=== PATIENT | male | born 1955 | race Caucasian/White ===

== ENCOUNTER 2020-04-23 01:11 | Outpatient (CLI) | payer MEDICARE, SELFPAY ==
[2020-04-23 18:41] LABS: SARS-CoV-2 RNA PCR Negative
== END 2020-04-23 01:12 | disposition home or self-care (01) ==
LOC: ANHCOVIDDT 01:11
PROVIDERS: PCP Family Medicine Adolescent Medicine; Visit Provider Internal Medicine Gastroenterology
DX: Z01.812 Encounter for preprocedural laboratory examination (principal); Z11.59 Encounter for screening for other viral diseases
CPT/HCPCS: 87635; C9803; U0003

== ENCOUNTER 2020-04-25 01:36 | Day surgery (SDC) | payer MEDICARE, SELFPAY ==
[2020-04-18 13:55] VITALS: BMI 25.1
[2020-04-25 10:43] VITALS: BP 104/68; PULSE 76; RESP 16; TEMP 36.2; O2SAT 99; BMI 24.8
[2020-04-25] MEDS: LACTATED RINGERS 1,000 ML 150 ML IV CONT (10:46)
--- NOTE | 2020-04-25 11:00 | WPDANESEPPF ---
Anes - Initial Pre Proc Eval Procedure: Operation Date: 04/25/20 12:00 Proposed Procedures p Screening Colonoscopy - Abraham Cabrera DO Date/Time: 04/25/20 11:00 Surgeon: Abraham Cabrera DO Pre Op Diagnosis: neoplasm screening Patient Data Age: 64 Gender: M Height: 5 ft 8 in Weight: 74.2 kg Last Vital Signs Temp 97.1 F L 04/25/20 10:43 Pulse 76 04/25/20 10:43 Resp 16 04/25/20 10:43 BP 104/68 04/25/20 10:43 Pulse Ox 99 04/25/20 10:43 Allergies Allergy/AdvReac Type Severity Reaction Status Date / Time No Known Allergies Allergy Verified 04/25/20 10:40 Home Medications Medication Instructions Recorded Confirmed Type aspirin 81 mg PO DAILY 04/18/20 04/18/20 History clopidogrel [Plavix] 75 mg PO DAILY 04/18/20 04/18/20 History fluticasone furoate-vilanterol 1 inh INHALATION DAILY 04/18/20 04/18/20 History [Breo Ellipta] icosapent ethyl [Vascepa] 2 g PO BID 04/18/20 04/18/20 History olmesartan [Benicar] 40 mg PO DAILY 04/18/20 04/18/20 History pantoprazole 20 mg PO QAM 04/18/20 04/18/20 History propranolol 80 mg PO DAILY 04/18/20 04/18/20 History rosuvastatin [Crestor] 20 mg PO DAILY 04/18/20 04/18/20 History Patient hx anesthesia problems: none Family hx anesthesia problems: none [facility] Past Medical History Medical History (Updated 04/25/20 @ 10:55 by Luis Montoya MD) Asthma CVA (cerebral vascular accident) GERD (gastroesophageal reflux disease) Hypertension Family History Family History (Updated 05/21/18 @ 09:35 by DOCTOR UNKNOWN) Father Diabetes mellitus Hypertension Asthma Family history of Alzheimer's disease Sibling Patient's sister is in good health Patient's brother is in good health Mother Family history of elevated blood lipids Social History Social History Smoking status: Former smoker Smoking end date: 10/12/80 Anes - Eval Final PreProcedure Day of Procedure 04/25/20 11:00 Patient weight: normal Heart: regular rate and rhythm Lungs: clear to auscultation Airway: Mallampati scale class II Neurological: alert and oriented Last oral intake: >/= 8 hours ASA classification: III Emergent: no Anesthetic plan: proceed Anesthesia type and monitoring: general GIVS and standard monitoring Informed Consent: The patient's anesthetic plan and its attendant risks and benefits were discussed with the patient/family/POA. Questions were solicited and answers provided to the satisfaction of the patient/family/POA.
--- NOTE | 2020-04-25 11:25 | PM.IMHP ---
H&P: HPI History of Present Illness Chief complaint: neoplasm screening Narrative: Reason for visit colonoscopy. This very pleasant gentleman's here at the request of the primary physician. The patient was examined. Impression: Colon cancer polyp screening. Recommendation: Colonoscopy. History: This very pleasant gentleman is here for screening colonoscopy. GI review systems negative. He has remote history of colon polyps? . Physical examination: General: very pleasant patient in no acute distress. HEENT: Head was normocephalic sclerae is clear mouth without masses neck was supple. Heart: Rate rhythm regular without S3 or S4. Lungs: CTA. Abdomen: Soft with no guarding or rigidity. Bowel sounds were active. Neurologic: Cranial nerves 2 through 12 intact. No focal defects. No clonus. Musculoskeletal system: Revealed no joint tenderness or swelling no muscle atrophy. Extremities: Reveal no significant edema. Skin: Warm and dry with normal turgor. Mental status: intact. Patient is alert and oriented. Review of Systems Review of Systems: All systems reviewed & are unremarkable except as noted in HPI and below PMFSH Past Medical History Medical History (Updated 04/25/20 @ 11:26 by Abraham Cabrera DO) Asthma CVA (cerebral vascular accident) GERD (gastroesophageal reflux disease) HLD (hyperlipidemia) HTN (hypertension) Surgical History Surgical History (Updated 04/25/20 @ 11:27 by Abraham Cabrera DO) H/O colonoscopy History of nasal surgery Family History Family History Father Diabetes mellitus Hypertension Asthma Family history of Alzheimer's disease Sibling Patient's sister is in good health Patient's brother is in good health Mother Family history of elevated blood lipids Social History Social History Smoking status: Former smoker Smoking end date: 10/12/80 Meds Home Medications and Allergies Home Medications Medication Instructions Recorded Confirmed Type aspirin 81 mg PO DAILY 04/18/20 04/18/20 History clopidogrel [Plavix] 75 mg PO DAILY 04/18/20 04/18/20 History fluticasone furoate-vilanterol 1 inh INHALATION DAILY 04/18/20 04/18/20 History [Breo Ellipta] icosapent ethyl [Vascepa] 2 g PO BID 04/18/20 04/18/20 History olmesartan [Benicar] 40 mg PO DAILY 04/18/20 04/18/20 History pantoprazole 20 mg PO QAM 04/18/20 04/18/20 History propranolol 80 mg PO DAILY 04/18/20 04/18/20 History rosuvastatin [Crestor] 20 mg PO DAILY 04/18/20 04/18/20 History Allergies Allergy/AdvReac Type Severity Reaction Status Date / Time No Known Allergies Allergy Verified 04/25/20 10:40 Vital Signs Vital Signs - 24 hr 04/25/20 10:43 Temperature 36.2 C L Pulse Rate 76 Respiratory Rate 16 Blood Pressure 104/68 Pulse Oximetry 99
[2020-04-25 12:04] VITALS: BP 77/45; PULSE 73; RESP 25; O2SAT 97
[2020-04-25 12:14] VITALS: BP 95/56; PULSE 75; RESP 23; O2SAT 95
[2020-04-25 12:24] VITALS: BP 101/64; PULSE 71; RESP 20; O2SAT 98
== END 2020-04-25 12:35 | disposition home or self-care (01) ==
PROVIDERS: PCP Family Medicine Adolescent Medicine; Visit Provider Internal Medicine Gastroenterology
PROC: 0DJD8ZZ Inspection of Lower Intestinal Tract, Via Natural or Artificial Opening Endoscopic (ICD-10-PCS; CPT 45378; principal; 2020-04-25 12:00)
DX: Z12.11 Encounter for screening for malignant neoplasm of colon (principal); D12.2 Benign neoplasm of ascending colon; D12.8 Benign neoplasm of rectum; K63.5 Polyp of colon; K57.30 Diverticulosis of large intestine without perforation or abscess without bleeding; K64.8 Other hemorrhoids; I10 Essential (primary) hypertension; J45.909 Unspecified asthma, uncomplicated; K21.9 Gastro-esophageal reflux disease without esophagitis; Z86.73 Personal history of transient ischemic attack (TIA), and cerebral infarction without residual deficits; Z79.82 Long term (current) use of aspirin; Z79.02 Long term (current) use of antithrombotics/antiplatelets; Z87.891 Personal history of nicotine dependence
CPT/HCPCS: 45385; 88305; J2370; J2704; J7120

== ENCOUNTER 2020-08-10 19:29 | Inpatient (IN) | payer MEDICARE, SELFPAY ==
[2020-08-10] VITALS (24 sets, daily range): BP systolic 108–133; BP diastolic 63–78; PULSE 75–87; RESP 16–18; TEMP 36.3; O2SAT 90–100
--- NOTE | ~2020-08-10 | CT_ITS ---
EXAMINATION: CTA abdomen pelvis DATE: 08/10/2020 23:21 INDICATION: Blood in the stool TECHNIQUE: Computed tomographic angiography (CTA) of the abdomen and pelvis was performed with 100 mL Omnipaque-350 intravenous contrast. Maximum intensity projection 3D-reconstructions of the aorta and other arteries were constructed by the technologist on a separate workstation. The dose-length produ ct (DLP) was 729.69 mGy-cm. Automated exposure control and iterative reconstruction technique were em ployed. COMPARISON: None. FINDINGS: The lung bases are clear. The heart size is normal. There is minimal atherosclerosis of the abdominal aorta. No aortic dissection or aneurysm is identified. The celiac axis, superior mesenteri c artery, and inferior mesenteric artery are unremarkable. The iliac vessels are normal in appearance . Single renal arteries are present bilaterally. The liver, spleen, pancreas, gallbladder, and adrena l glands are normal. Colonic diverticulosis is noted. Subtle fat stranding is seen adjacent to the si gmoid colon. The appendix is normal. No pathologically enlarged abdominal or pelvic lymph nodes are i dentified. There is no free intraperitoneal gas or evidence of bowel obstruction. There is a left ing uinal hernia containing fat. There is mild lumbar spondylosis. IMPRESSION: 1. Diverticulosis with possible mild sigmoid diverticulitis. 2. Unremarkable abdominal and pelvic CTA. Reviewed, dictated and finalized at location A.
[2020-08-10 22:21] LABS: Basophils Absolute Auto 0.1 K/mm3 (0.0-0.1); Basophils Percent Auto 0.5 % (0.2-1.2); Eosinophils Absolute Auto 0.2 K/mm3 (0-0.3); Eosinophils Percent Auto 1.7 % (0-4.4); Hematocrit 37.9 % (42.0-52.0); Hemoglobin 13.1 g/dL (14.0-18.0); Immature Granulocyte Absolute 0.07 K/mm3 (0.00-0.031); Immature Granulocyte Percent A 0.6 % (0-0.5); Lymphocytes Absolute Auto 2.35 K/mm3 (0.9-3.2); Lymphocytes Percent Auto 19.6 % (18.3-44.2); Mean Corpuscular HGB Conc 34.6 g/dl (32-36); Mean Corpuscular Hemoglobin 32.2 pg (26-34); Mean Corpuscular Volume 93.1 fl (80-100); Mean Platelet Volume 8.6 fl (7.4-10.4); Monocytes Absolute Auto 0.7 K/mm3 (0.1-0.6); Monocytes Percent Auto 6.1 % (2.6-8.5); Neutrophils Absolute Auto 8.6 K/mm3 (1.3-6.7); Neutrophils Percent Auto 71.5 % (45.5-73.1); Platelet Count Result 289 k/mm3 (150-375); Red Blood Count 4.07 M/mm3 (4.6-6.20); Red Cell Distribution Width 11.6 % (11.5-14.5)
[2020-08-10 22:34] LABS: Alanine Aminotransferase 41 U/L (4-50); Albumin Level 4.3 g/dL (3.5-5.1); Alkaline Phosphatase 76 U/L (38-126); Anion Gap 9 mmol/L (8-16); Aspartate Amino Transferase 34 U/L (17-59); Bilirubin,Total 0.7 mg/dL (0.2-1.3); Blood Urea Nitrogen 26 mg/dL (9-20); Calcium 9.2 mg/dL (8.4-10.2); Carbon Dioxide 26 mmol/L (22-30); Chloride 102 mmol/L (98-107); Estimated CRCL calculation 57 ml/min; Estimated Glomerular Filt Rate > 60; Glucose 98 mg/dL (75-110); Potassium 4.3 mmol/L (3.4-5.0); Sodium 137 mmol/L (137-145)
--- NOTE | 2020-08-10 22:37 | ED.GIBLEED ---
HPI - GI Bleed General Chief complaint: GI Bleed Stated complaint: UPSET STOMACH, BLOOD IN STOOL Time Seen by Provider: 08/10/20 20:23 Source: patient and family Mode of arrival: ambulatory Limitations: no limitations History of Present Illness HPI Narrative: 65-year-old male History of hypertension and CVA and is on Plavix Had a diarrheal illness earlier this month which he took Lomotil for Presents now with several loose bloody stools today which seem to be getting somewhat worse He has no abdominal pain His most recent episode here in the ED he described as just a big blood clot No dizziness or lightheadedness complaint: gross hematochezia Onset (ago): hour(s) Pain Consistency: other (None) Related Data Home Medications Medication Instructions Recorded Confirmed aspirin 81 mg PO DAILY 04/18/20 04/18/20 clopidogrel [Plavix] 75 mg PO DAILY 04/18/20 04/18/20 fluticasone furoate-vilanterol 1 inh INHALATION DAILY 04/18/20 04/18/20 [Breo Ellipta] icosapent ethyl [Vascepa] 2 g PO BID 04/18/20 04/18/20 olmesartan [Benicar] 40 mg PO DAILY 04/18/20 04/18/20 pantoprazole 20 mg PO QAM 04/18/20 04/18/20 propranolol 80 mg PO DAILY 04/18/20 04/18/20 rosuvastatin [Crestor] 20 mg PO DAILY 04/18/20 04/18/20 Allergies Allergy/AdvReac Type Severity Reaction Status Date / Time No Known Allergies Allergy Verified 08/10/20 22:24 Review of Systems Review of Systems: All systems reviewed & are unremarkable except as noted in HPI and below Constitutional: Constitutional: Denies chills, Denies fatigue, Denies fever(s), Denies headache(s) and Denies weakness Eyes: Eyes: Reports no additional eye complaints and Denies change in vision ENT: Denies headache(s), Denies epistaxis, Denies nasal congestion and Denies sore throat Cardiovascular: Cardiovascular: Denies chest pain, Denies leg edema, Denies palpitations and Denies dyspnea Respiratory: Respiratory: Denies cough, Denies dyspnea and Denies wheezing Gastrointestinal: Gastrointestinal: Denies abdominal pain, Reports diarrhea, Denies nausea and Denies vomiting Comments: Lower GI bleed Genitourinary: Genitourinary: Denies hematuria, Denies dysuria and Denies urinary frequency Musculoskeletal: Musculoskeletal: Denies deformity, Denies arthralgias, Denies joint swelling, Denies muscle weakness and Denies numbness Integumentary/Breasts: Skin/Breast: Denies rash and Denies wounds Neurologic: Denies headache(s), Denies focal weakness, Denies numbness and Denies weakness Psychiatric: Psychiatric: Reports no additional psychiatric complaints Endocrine: Endocrine: Denies fatigue and Denies palpitations Hematologic/Lymphatic: Hematologic/Lymphatic: Denies easy bleeding and Denies easy bruising Allergic/Immunologic: Allergic/Immunologic: Denies wheezing PMFSH Past Medical History Medical History (Updated 08/11/20 @ 00:21 by Abraham Gilmore MD) Asthma CVA (cerebral vascular accident) GERD (gastroesophageal reflux disease) HLD (hyperlipidemia) HTN (hypertension) Surgical History Surgical History (Updated 04/25/20 @ 11:27 by Abraham Cabrera DO) H/O colonoscopy History of nasal surgery Family History Family History Father Diabetes mellitus Hypertension Asthma Family history of Alzheimer's disease Sibling Patient's sister is in good health Patient's brother is in good health Mother Family history of elevated blood lipids Social History Social History Smoking status: Former smoker Smoking end date: 10/12/80 Course Vital Signs Vital signs: Vital Signs Temperature 36.3 C L 08/10/20 19:33 Pulse Rate 87 08/10/20 19:33 Respiratory Rate 16 08/10/20 19:33 Blood Pressure 133/78 08/10/20 19:33 Pulse Oximetry 99 08/10/20 19:33 Temperature 36.3 C L 08/10/20 19:33 Pulse Rate 82 08/10/20 22:23 Respiratory Rate 18 08/10/20 23:31 Blood Pressure 113/63 08/10/20
[2020-08-10] MEDS: SODIUM CHLORIDE 0.9% IV 1,000 ML 150 ML IV CONT (22:43)
[2020-08-10 23:12] LABS: Iron 158 ug/dL (49-181)
[2020-08-10 23:21] LABS: Percent Iron Saturation 56 % (20-50)
[2020-08-11] VITALS (11 sets, daily range): BP systolic 98–129; BP diastolic 60–82; PULSE 71–84; RESP 14–20; TEMP 36.3–36.7; O2SAT 97–99; BMI 25.0
[2020-08-11 00:24] LABS: Free T4 Free Thyroxine Reflex 0.85 ng/dL (0.78-2.19)
[2020-08-11 01:06] LABS: Total Triiodothyronine (T3) 1.05 NG/ML (0.97-1.69)
--- NOTE | 2020-08-11 01:09 | ADMGEN ---
This patient, Abraham Bruno, was admitted to Medical Room 250-01. Patient/family oriented to hospital policies and general routines including ID bracelet, bed and alarms, visiting hours, pain management, procedures, bathroom and other care routines, personal items, smoking policy, room service/diet, and visiting hours. Information on how to activate the Rapid Response Team has been discussed. Patient/Family are encouraged to report perceived risks to care and to ask questions if they do not understand what they are told or what they should do.
[2020-08-11] MEDS: LACTATED RINGERS 1,000 ML 125 ML IV CONT (01:16)
--- NOTE | 2020-08-11 05:34 | PM.IMHP ---
H&P: HPI History of Present Illness Date/Time: 08/11/20 06:00 Chief complaint: Blood in stool Narrative: Abraham Bruno is a 65 year old male of CVA hypertension who presented to the ER with blood in his stool. The patient reports that on July 19 he developed some GI symptoms with lower abdominal cramping, sweats, subjective fevers and diarrhea. He had approximately 5 days of diarrhea when he contacted his primary care physician's office they sent him out a anti diarrheal. Since that time is stools have been normally formed without blood or hematochezia. However he was still having some intermittent lower abdominal cramping and increased flatulence. On the he began having increased abdominal cramping and had several stools. Early in the day he was having a small amount of blood in his stools but as the day progressed he was having more stools. He stated that the last stool prior to coming to the ER was just 1 big blood clot. He did have another is stool down in the ER which was a mixture of blood in stool was still large amount of blood per his report. He is still having some lower abdominal cramping but has not had any further bowel movements since arrival to the medical floor. He has not had any is further fevers or chills since the beginning of the month. He had a screening colonoscopy in April performed by Dr. Cabrera at which time he had some polyps with polypectomy and diverticuli and hemorrhoids. He has not had any recent ill contacts or travel. He denies any lightheadedness, dizziness or syncope. Review of Systems Review of Systems: Narrative: 12 systems were reviewed with pertinent positives and negatives per HPI. Except as documented in the HPI, all other systems were reviewed and are negative. [facility] Past Medical History Medical History (Updated 08/11/20 @ 05:46 by Adelaida Neves DO) Asthma CVA (cerebral vascular accident) Right lacunar infarct 2006 Diastolic dysfunction without heart failure Noted on echocardiogram May 2018 demonstrating grade 1 diastolic dysfunction EF 60-65% with small atheroma GERD (gastroesophageal reflux disease) HLD (hyperlipidemia) HTN (hypertension) Surgical History Surgical History (Updated 08/11/20 @ 05:37 by Adelaida Neves DO) H/O colonoscopy Screening colonoscopy 04/15/2020 with polypectomy x2 of ascending colon with recommended repeat colonoscopy in 5 years History of nasal surgery Family History Family History (Updated 08/11/20 @ 06:42 by Adelaida Neves DO) Father , in his late 80s Diabetes mellitus Hypertension Asthma Dementia Sibling Patient's sister is in good health Patient's brother is in good health Mother , mid July 2020 at age 88 Hyperlipidemia Social History Social History (Updated 08/11/20 @ 06:42 by Adelaida Neves DO) Social History: Primary care physician: Dr. Karel Alvarado Code status: Full code Smoking packs per day: 0.75 Smoking cigarettes per day: 15.0 Years smoked: 5 Smoking pack-years: 3.75 Smoking status: Former smoker Tobacco type: cigarettes Smoking end date: 10/12/80 Alcohol intake: current Drinks per week: 10 Alcohol use details: He drinks a couple of mixed drinks daily. Substance use: never Substance use type: does not use Living arrangements: with family Additional living arrangements comments: He lives with his of 46 years. They have 4 adult children under relatively healthy. They have 8 grand children. Occupation/Education: retired Additional occupation/education comments: He is retired from a [employer]. Gender identity (if verbalized by the patient): Male Spiritual care concerns: No Meds Home Medications and Allergies Home Medications Medication Instructions Recorded Confirmed Type aspirin 81 mg PO DAILY 04/18/20 08/11/20 History clopidogrel [Plavix] 75 mg PO DAILY 04/18/20 08/11/20 History flutic
[2020-08-11] MEDS: metroNIDAZOLE 500 MG/ISO 100ML 500 MG/100 ML BAG 100 MG IVPB ×4 (06:56→23:28)
[2020-08-11 08:15] LABS: Hematocrit 33.4 % (42.0-52.0); Hemoglobin 11.4 g/dL (14.0-18.0)
[2020-08-11] MEDS: FAMOTIDINE 20 MG/2 ML VIAL IV PUSH ×2 (10:17→20:26)
[2020-08-11] MEDS: OMEGA 3 POLYUNSAT FATTY ACIDS 1 GM CAP PO ×2 (10:18→18:28)
[2020-08-11] MEDS: ROSUVASTATIN 10 MG TABLET 20 MG PO (10:18)
[2020-08-11] MEDS: OLMESARTAN MEDOXOMIL 20 MG TABLET 40 MG PO (10:18)
[2020-08-11] MEDS: ASPIRIN 81 MG ENTERIC TABLET PO (10:19)
--- NOTE | 2020-08-11 11:09 | PM.IMPN ---
Progress Note: A&P Assessment and Plan (1) Diverticulitis large intestine: Qualifiers: Diverticulitis bleeding: with bleeding Diverticulitis complication: without perforation or abscess Qualified Code(s): K57.33 - Diverticulitis of large intestine without perforation or abscess with bleeding Code(s): K57.32 - Diverticulitis of large intestine without perforation or abscess without bleeding Status: Acute Assessment and Plan: ----- Patient continues to have blood in his stool with pain in his abdomen. He says the blood is less but is worrisome to him. I spoke with him about his hemoglobin that is stable but he is worried about going home. His Plavix has been held but his aspirin will be continued. I will watch him overnight to ensure that his bleeding improves as well as his pain. Likely home on oral antibiotics tomorrow morning (2) Acute lower gastrointestinal bleeding: Code(s): K92.2 - Gastrointestinal hemorrhage, unspecified Status: Acute Assessment and Plan: ----- due to diverticulosis with diverticulitis. See above (3) GERD (gastroesophageal reflux disease): Code(s): K21.9 - Gastro-esophageal reflux disease without esophagitis Status: Acute Assessment and Plan: ----- no acute issues, continue Protonix (4) HTN (hypertension): Code(s): I10 - Essential (primary) hypertension Status: Acute Assessment and Plan: ----- last blood pressure 108/75. Continue propanolol and olmesatan. (5) Asthma: Code(s): J45.909 - Unspecified asthma, uncomplicated Status: Acute Assessment and Plan: ----- Chronic,no wheezing noted on exam. continue Symbicort. Albuterol p.r.n. as needed for shortness of breath Time Spent With Patient Time with patient: 25 - 35 minutes Subjective Date/time seen: 08/11/20 11:09 Interval history: Pt is a 65-year-old male here for diverticulitis. Patient states he still feels pretty bloated, has some pain, and is having blood in his stool. He does not feel lightheaded, short of breath, or having palpitations or chest pain. He has been able to eat okay so far. He is finally having solid stool after 5 days of diarrhea last week. Last colonoscopy was by Dr. Cabrera last April and which polyps were found. Discussed his options and plan of care Review of Systems Review of Systems: All systems reviewed & are unremarkable except as noted in HPI and below Exam Narrative: Exam Narrative: General: Well developed well nourished patient in NAD HEENT: normocephalic Neck: supple Neuro: Alert and oriented x4 CV:RRR Resp:CTA Abd: Soft, partially distended. pain to the right lower quadrant. Positive bowel sounds Extremities: No swelling, erythema, or pain to palpation. Objective Data Vital Signs Vital Signs: Vital Signs - 24 hr 08/10/20 19:33 08/10/20 20:31 08/10/20 20:32 Temperature 97.3 F L Pulse Rate 87 Respiratory Rate 16 Blood Pressure 133/78 116/75 Pulse Oximetry 99 98 98 08/10/20 20:45 08/10/20 20:46 08/10/20 21:00 Temperature Pulse Rate Respiratory Rate Blood Pressure 120/73 Pulse Oximetry 90 97 99 08/10/20 21:15 08/10/20 21:30 08/10/20 22:18 Temperature Pulse Rate Respiratory Rate Blood Pressure Pulse Oximetry 97 96 98 08/10/20 22:19 08/10/20 22:20 08/10/20 22:21 Temperature Pulse Rate Respiratory Rate Blood Pressure 117/78 108/69 113/76 Pulse Oximetry 99 100 98 08/10/20 22:22 08/10/20 22:23 08/10/20 22:30 Temperature Pulse Rate 75 82 Respiratory Rate Blood Pressure 117/78 113/76 Pulse Oximetry 98 08/10/20 22:31 08/10/20 22:45 08/10/20 23:00 Temperature Pulse Rate Respiratory Rate Blood Pressure 115/74 Pulse Oximetry 99 98 100 08/10/20 23:21 08/10/20 23:22 08/10/20 23:30 Temperature Pulse Rate Respiratory Rate Blood Pressure 122/67 Pu
[2020-08-11] MEDS: FLUTICASONE PROPIONATE 0.05% NA SPR 16 GM BTL (*BKC) 1 SPRAY NASAL (11:55)
[2020-08-11 13:14] LABS: Hematocrit 33.7 % (42.0-52.0); Hemoglobin 11.6 g/dL (14.0-18.0)
[2020-08-12 04:00] VITALS: BP 114/63; PULSE 93; RESP 20; TEMP 37.3; O2SAT 98
[2020-08-12] MEDS: metroNIDAZOLE 500 MG/ISO 100ML 500 MG/100 ML BAG 100 MG IVPB ×4 (05:23→23:56)
[2020-08-12 05:35] LABS: Basophils Absolute Auto 0.1 K/mm3 (0.0-0.1); Basophils Percent Auto 0.5 % (0.2-1.2); Eosinophils Absolute Auto 0.2 K/mm3 (0-0.3); Eosinophils Percent Auto 1.4 % (0-4.4); Hematocrit 29.7 % (42.0-52.0); Hemoglobin 10.1 g/dL (14.0-18.0); Immature Granulocyte Absolute 0.07 K/mm3 (0.00-0.031); Immature Granulocyte Percent A 0.6 % (0-0.5); Lymphocytes Absolute Auto 2.26 K/mm3 (0.9-3.2); Lymphocytes Percent Auto 19.8 % (18.3-44.2); Mean Platelet Volume 9.1 fl (7.4-10.4); Monocytes Absolute Auto 0.7 K/mm3 (0.1-0.6); Monocytes Percent Auto 5.8 % (2.6-8.5); Neutrophils Absolute Auto 8.2 K/mm3 (1.3-6.7); Neutrophils Percent Auto 71.9 % (45.5-73.1); Platelet Count Result 230 k/mm3 (150-375); Red Blood Count 3.16 M/mm3 (4.6-6.20); Red Cell Distribution Width 11.4 % (11.5-14.5); White Blood Count 11.4 K/mm3 (4.5-10.0)
[2020-08-12 05:55] LABS: Anion Gap 6 mmol/L (8-16); Blood Urea Nitrogen 18 mg/dL (9-20); Calcium 8.8 mg/dL (8.4-10.2); Carbon Dioxide 29 mmol/L (22-30); Chloride 101 mmol/L (98-107); Estimated CRCL calculation 62 ml/min; Estimated Glomerular Filt Rate > 60; Glucose 99 mg/dL (75-110); Potassium 4.3 mmol/L (3.4-5.0); Sodium 136 mmol/L (137-145)
--- NOTE | 2020-08-12 08:17 | PCRCNOTE ---
Window of time for administration has passed. See next scheduled administration.
[2020-08-12 09:20] VITALS: PULSE 100
[2020-08-12] MEDS: FAMOTIDINE 20 MG/2 ML VIAL IV PUSH ×2 (09:20→21:53)
[2020-08-12] MEDS: FLUTICASONE PROPIONATE 0.05% NA SPR 16 GM BTL (*BKC) 1 SPRAY NASAL (09:20)
[2020-08-12] MEDS: ROSUVASTATIN 10 MG TABLET 20 MG PO (09:20)
[2020-08-12] MEDS: OMEGA 3 POLYUNSAT FATTY ACIDS 1 GM CAP PO ×2 (09:22→16:29)
[2020-08-12] MEDS: ASPIRIN 81 MG ENTERIC TABLET PO (09:22)
[2020-08-12] MEDS: OLMESARTAN MEDOXOMIL 20 MG TABLET 40 MG PO (09:22)
--- NOTE | 2020-08-12 10:56 | PM.IMPN ---
Progress Note: A&P Assessment and Plan (1) Diverticulosis: Code(s): K57.90 - Diverticulosis of intestine, part unspecified, without perforation or abscess without bleeding Status: Acute Assessment and Plan: -----Pt continues to have blood in his stool which worsened overnight. His hgb did drop to 10.1 and pt is feeling dizzy when standing. Yesterday he was having more normal stools but now he is back to diarrhea (he had diarrhea for 5 days last week as well). His plavix has been held but it has only been a few days and has probably not washed out. I have talked with Dr. Cabrera and he is going to see him tomorrow. Stool culture will be ordered and pt is on abx for diverticulitis as well. (2) Diverticulitis large intestine: Qualifiers: Diverticulitis bleeding: with bleeding Diverticulitis complication: without perforation or abscess Qualified Code(s): K57.33 - Diverticulitis of large intestine without perforation or abscess with bleeding Code(s): K57.32 - Diverticulitis of large intestine without perforation or abscess without bleeding Status: Acute Assessment and Plan: ----- Continue levofloxacin and flagyl (3) Acute lower gastrointestinal bleeding: Code(s): K92.2 - Gastrointestinal hemorrhage, unspecified Status: Acute Assessment and Plan: ----- due to diverticulosis with diverticulitis. See above (4) GERD (gastroesophageal reflux disease): Code(s): K21.9 - Gastro-esophageal reflux disease without esophagitis Status: Acute Assessment and Plan: ----- no acute issues, continue Protonix (5) HTN (hypertension): Code(s): I10 - Essential (primary) hypertension Status: Acute Assessment and Plan: ----- last blood [id number]. Continue propanolol but will hold olmesatan as pt is dizzy and his bp has been soft. (6) Asthma: Code(s): J45.909 - Unspecified asthma, uncomplicated Status: Acute Assessment and Plan: ----- Chronic,no wheezing noted on exam. continue Symbicort. Albuterol p.r.n. as needed for shortness of breath Subjective Date/time seen: 08/12/20 10:56 Interval history: Pt is a 65-year-old male here for diverticulosis. Pt seen today and more, and worse, bloody bowel movements at 12 and 3 am. He also had one at 6am which had a little less blood. He is not really having abdominal pain with this. He has started feeling dizzy when he stands up. No CP or SOB. No fevers but feels 'hotter and sweats more at night'. He is now having diarrhea again. Last colonoscopy was by Dr. Cabrera last April and which polyps were found. Discussed his options and plan of care Exam Narrative: Exam Narrative: General: Well developed well nourished patient in NAD HEENT: normocephalic Neck: supple Neuro: Alert and oriented x4 CV:RRR Resp:CTA Abd: Soft, partially distended. no pain to palpation. Positive bowel sounds Extremities: No swelling, erythema, or pain to palpation. Objective Data Vital Signs Vital Signs: Vital Signs - 24 hr 08/11/20 14:00 08/11/20 18:26 08/11/20 20:00 Temperature 97.9 F 97.4 F L Pulse Rate 73 73 Respiratory Rate 17 20 Blood Pressure 110/68 122/60 98/62 L Pulse Oximetry 97 98 08/11/20 21:08 08/12/20 04:00 08/12/20 09:20 Temperature 99.2 F Pulse Rate 71 93 100 Respiratory Rate 16 20 Blood Pressure 114/63 Pulse Oximetry 98 Intake/Output Intake/Output: Intake & Output 08/09/20 08/10/20 08/11/20 08/12/20 23:59 23:59 23:59 22:59 Intake Total 2840 650 Output Total 650 Balance 2190 650 Meds/Results Medications: Active Medications Generic Name Dose Route Start Last Admin Trade Name Freq PRN Reason Stop Dose Admin Acetaminophen 650 mg 08/11/20 00:15 Acetaminophen 325 Mg Tablet PO Q4H PRN Mild Pain (1-3) or Fever Albuterol 2 puff 08/11/20 05:55 Albuterol Sulfate (*Sp) Aerosol 1 Puff
[2020-08-12] MEDS: LACTATED RINGERS 1,000 ML 75 ML IV CONT (11:28)
[2020-08-12 12:18] LABS: Hematocrit 29.9 % (42.0-52.0); Hemoglobin 10.1 g/dL (14.0-18.0)
[2020-08-12 14:00] VITALS: BP 100/54; PULSE 74; RESP 16; TEMP 36.7; O2SAT 99
[2020-08-12 22:00] VITALS: BP 119/80; PULSE 82; RESP 20; TEMP 36.7; O2SAT 98
[2020-08-12] MEDS: ACETAMINOPHEN 325 MG TABLET 650 MG PO (22:08)
[2020-08-13] MEDS: LACTATED RINGERS 1,000 ML 75 ML IV CONT (03:13)
[2020-08-13 05:52] LABS: Basophils Absolute Auto 0.1 K/mm3 (0.0-0.1); Basophils Percent Auto 0.6 % (0.2-1.2); Eosinophils Absolute Auto 0.2 K/mm3 (0-0.3); Eosinophils Percent Auto 1.9 % (0-4.4); Hematocrit 25.2 % (42.0-52.0); Hemoglobin 8.5 g/dL (14.0-18.0); Immature Granulocyte Absolute 0.06 K/mm3 (0.00-0.031); Immature Granulocyte Percent A 0.7 % (0-0.5); Lymphocytes Absolute Auto 2.11 K/mm3 (0.9-3.2); Lymphocytes Percent Auto 23.4 % (18.3-44.2); Mean Corpuscular HGB Conc 33.7 g/dl (32-36); Mean Corpuscular Hemoglobin 32.3 pg (26-34); Mean Corpuscular Volume 95.8 fl (80-100); Mean Platelet Volume 8.9 fl (7.4-10.4); Monocytes Absolute Auto 0.5 K/mm3 (0.1-0.6); Monocytes Percent Auto 5.4 % (2.6-8.5); Neutrophils Absolute Auto 6.1 K/mm3 (1.3-6.7); Platelet Count Result 197 k/mm3 (150-375); Red Blood Count 2.63 M/mm3 (4.6-6.20); Red Cell Distribution Width 11.7 % (11.5-14.5)
[2020-08-13] MEDS: metroNIDAZOLE 500 MG/ISO 100ML 500 MG/100 ML BAG 100 MG IVPB ×4 (05:52→23:30)
[2020-08-13 06:00] VITALS: BP 109/72; PULSE 74; RESP 20; TEMP 36.9; O2SAT 98
[2020-08-13 06:03] LABS: Anion Gap 2 mmol/L (8-16); Blood Urea Nitrogen 15 mg/dL (9-20); Calcium 8.7 mg/dL (8.4-10.2); Carbon Dioxide 31 mmol/L (22-30); Chloride 103 mmol/L (98-107); Estimated CRCL calculation 62 ml/min; Estimated Glomerular Filt Rate > 60; Glucose 95 mg/dL (75-110); Potassium 4.3 mmol/L (3.4-5.0); Sodium 136 mmol/L (137-145)
[2020-08-13 08:12] VITALS: PULSE 82
[2020-08-13] MEDS: OMEGA 3 POLYUNSAT FATTY ACIDS 1 GM CAP PO ×2 (08:12→16:31)
[2020-08-13] MEDS: ROSUVASTATIN 10 MG TABLET 20 MG PO (08:12)
[2020-08-13] MEDS: FAMOTIDINE 20 MG/2 ML VIAL IV PUSH (08:12)
[2020-08-13] MEDS: FLUTICASONE PROPIONATE 0.05% NA SPR 16 GM BTL (*BKC) 1 SPRAY NASAL (08:12)
[2020-08-13] MEDS: ASPIRIN 81 MG ENTERIC TABLET PO (08:12)
[2020-08-13] MEDS: ACETAMINOPHEN 325 MG TABLET 650 MG PO (09:49)
[2020-08-13 11:56] LABS: Hematocrit 28.2 % (42.0-52.0); Hemoglobin 9.5 g/dL (14.0-18.0)
--- NOTE | 2020-08-13 12:22 | P.CDI_ITS ---
CDI Query Clarification Request - GI bleed has been documented - 08/12 Pt continues to have blood in his stool and Pt is feeling dizzy when standing documented -08/10 H&H 13.1/37.9 08/13 H&H 8.5/.2 Please clarify if there is a possible corresponding diagnosis for above findings: * Acute blood loss anemia * Acute anemia of other cause * No clinical significance * Unable to determine
[2020-08-13 13:32] VITALS: BP 109/57; PULSE 73; RESP 16; TEMP 36.4; O2SAT 100
--- NOTE | 2020-08-13 14:44 | WPDGICN ---
GI Consult Note Consult date/time: 08/13/20 14:44 HPI: Reason for consultation rectal bleeding, anemia and possible diverticulitis. This very pleasant gentleman seen in consultation request of the hospitalist and with the patient's permission. The patient examined and chart reviewed. Impression: He wave very pleasant gentleman with underlying GI bleeding. This is probably diverticular origin. He does have some bloody diarrhea which may indicate diverticulitis/ colitis. It seems to be slowly improving. Anemia secondary to above. History of adenomatous colon polyps. Asthma. CTA. Diastolic dysfunction. GERD controlled on medication. HLD. HTN. Recommendation: Continue IV antibiotics. Follow hemoglobin and hematocrit. Continue PPI. Stool studies have been ordered. If the patient's bleeding eventually decreases in ceases will hold off any invasive procedure at this time. Would then consider outpatient sigmoidoscopy/colonoscopy in 8 weeks. If he continues to bleed over the next day or so will proceed with colonoscopy this admission. History: This very pleasant gentleman was evaluated by his primary doctor 7 days prior to admission. At that time he received a flu shot. The patient began having some abdominal discomfort and loose stools. He called his primary physician who gave him some medication to help the stools. He then continued with some episodes of abdominal discomfort. He then began having bloody diarrhea. On Thursday he presented emergency room and subsequently was admitted the hospital. CT imaging was obtained: IMPRESSION: 1. Diverticulosis with possible mild sigmoid diverticulitis. 2. Unremarkable abdominal and pelvic CTA. Patient was placed on Levaquin and Flagyl. Stool studies are pending. Patient's bleeding has slowly improved. However, it is still persists. The patient denies any significant abdominal pain at this time. He was complaining being hot and cold last week, but thought it was from the flu vaccine. He denies any recent antibiotic intake. Patient in April of 2020 had a colonoscopy. At that time he had evidence of adenomatous colon polyps and diverticulosis coli. Patient denies any nausea, vomiting, hematemesis, dysphagia or odynophagia. He has no significant heartburn at this juncture.He does have some complaints of abdominal bloating. This has been more of a chronic problem. Bloating usually occurs after meals. He is presently tolerating a heart healthy diet. Physical examination: General: very pleasant patient in no acute distress. HEENT: Head was normocephalic sclerae is clear mouth without masses neck was supple. Heart: Rate rhythm regular without S3 or S4. Lungs: CTA. Abdomen: Soft with no guarding or rigidity. Bowel sounds were active. Neurologic: Cranial nerves 2 through 12 intact. No focal defects. No clonus. Musculoskeletal system: Revealed no joint tenderness or swelling no muscle atrophy. Extremities: Reveal no significant edema. Skin: Warm and dry with normal turgor. Mental status: intact. Patient is alert and oriented. Review of Systems Review of Systems: All systems reviewed & are unremarkable except as noted in HPI and below PMFSH Past Medical History Medical History Adenomatous colon polyp Asthma CVA (cerebral vascular accident) Right lacunar infarct 2006 Diastolic dysfunction without heart failure Noted on echocardiogram May 2018 demonstrating grade 1 diastolic dysfunction EF 60-65% with small atheroma Diverticula, colon GERD (gastroesophageal reflux disease) HLD (hyperlipidemia) HTN (hypertension) Surgical History Surgical History H/O colonoscopy Screening colonoscopy 04/15/2020 with polypectomy x2 of ascending colon with recommended repeat colonoscopy in 5 years History of nasal surgery Family History F
--- NOTE | 2020-08-13 15:15 | PM.IMPN ---
Progress Note: A&P Assessment and Plan (1) Diverticulosis: Code(s): K57.90 - Diverticulosis of intestine, part unspecified, without perforation or abscess without bleeding Status: Acute Assessment and Plan: -----Pt continues to have blood in his stool which worsened overnight. His hgb did dropped a bit more down to 8.5 this AM. GI consulted who plans to watch him conservatively but may do a colonoscopy if he continues to bleed. Stool studies sent, no leukocytosis. Cdiff less likely d/t no leukocytosis or recent abx use. (2) Diverticulitis large intestine: Qualifiers: Diverticulitis bleeding: with bleeding Diverticulitis complication: without perforation or abscess Qualified Code(s): K57.33 - Diverticulitis of large intestine without perforation or abscess with bleeding Code(s): K57.32 - Diverticulitis of large intestine without perforation or abscess without bleeding Status: Acute Assessment and Plan: ----- Continue levofloxacin and flagyl (3) Acute lower gastrointestinal bleeding: Code(s): K92.2 - Gastrointestinal hemorrhage, unspecified Status: Acute Assessment and Plan: ----- due to diverticulosis with diverticulitis. See above (4) GERD (gastroesophageal reflux disease): Code(s): K21.9 - Gastro-esophageal reflux disease without esophagitis Status: Acute Assessment and Plan: ----- no acute issues, continue Protonix (5) HTN (hypertension): Code(s): I10 - Essential (primary) hypertension Status: Acute Assessment and Plan: ----- last blood pressure 109/57. Continue propanolol but will hold olmesatan as pt is dizzy and his bp has been soft. (6) Asthma: Code(s): J45.909 - Unspecified asthma, uncomplicated Status: Acute Assessment and Plan: ----- Chronic,no wheezing noted on exam. continue Symbicort. Albuterol p.r.n. as needed for shortness of breath (7) Acute blood loss anemia: Code(s): D62 - Acute posthemorrhagic anemia Status: Acute Assessment and Plan: -----Hgb down to 8.5 this AM but improved to 9.5 this afternoon. 2/2 to above, continue to monitor. Subjective Date/time seen: 08/13/20 15:15 Interval history: Pt is a 65-year-old male here for diverticulosis. Pt seen today and states he continues to have blood but overall doing better he thinks. He has about 8-10 liquid BMs a day that contain diarrhea and blood. He denies dizziness, CP or SOB. Last colonoscopy was by Dr. Cabrera last April and which polyps were found. Eating and drinking okay, feeling bloated. Exam Narrative: Exam Narrative: General: Well developed well nourished patient in NAD HEENT: normocephalic Neck: supple Neuro: Alert and oriented x4 CV:RRR Resp:CTA Abd: Soft, partially distended. no pain to palpation. Positive bowel sounds Extremities: No swelling, erythema, or pain to palpation. Objective Data Vital Signs Vital Signs: Vital Signs - 24 hr 08/12/20 22:00 08/13/20 06:00 08/13/20 08:12 Temperature 98.1 F 98.4 F Pulse Rate 82 74 82 Respiratory Rate 20 20 Blood Pressure 119/80 109/72 Pulse Oximetry 98 98 08/13/20 13:32 Temperature 97.6 F Pulse Rate 73 Respiratory Rate 16 Blood Pressure 109/57 L Pulse Oximetry 100 Intake/Output Intake/Output: Intake & Output 08/11/20 08/12/20 08/12/20 08/13/20 00:59 00:59 23:59 23:59 Intake Total 2627 Output Total Balance 2627 Meds/Results Medications: Active Medications Generic Name Dose Route Start Last Admin Trade Name Freq PRN Reason Stop Dose Admin Acetaminophen 650 mg 08/11/20 00:15 08/13/20 09:49 Acetaminophen 325 Mg Tablet PO 650 mg Q4H PRN Administration Mild Pain (1-3) or Fever Albuterol 2 puff 08/11/20 05:55 Albuterol Sulfate (*Sp) Aerosol 1 Puff INHALATION QIDRT PRN Shortness Of Breath Aspirin 81 mg 08/11/20 09:00 1
[2020-08-13 15:30] LABS: Hematocrit 27.7 % (42.0-52.0); Hemoglobin 9.3 g/dL (14.0-18.0); Mean Corpuscular HGB Conc 33.6 g/dl (32-36); Mean Corpuscular Hemoglobin 31.8 pg (26-34); Mean Corpuscular Volume 94.9 fl (80-100); Platelet Count Result 254 k/mm3 (150-375); Red Blood Count 2.92 M/mm3 (4.6-6.20); Red Cell Distribution Width 11.6 % (11.5-14.5); White Blood Count 11.6 K/mm3 (4.5-10.0)
[2020-08-13 15:43] LABS: Cholesterol 104 mg/dL (0-200); HDL Direct 40 mg/dL; Triglycerides 193 mg/dL (<150)
[2020-08-13 15:46] LABS: Anion Gap 6 mmol/L (8-16); Blood Urea Nitrogen 15 mg/dL (9-20); CRP < 0.5 mg/dL (<1.0); Calcium 9.2 mg/dL (8.4-10.2); Carbon Dioxide 29 mmol/L (22-30); Chloride 101 mmol/L (98-107); Estimated CRCL calculation 62 ml/min; Estimated Glomerular Filt Rate > 60; Glucose 92 mg/dL (75-110); Magnesium 1.9 mg/dL (1.6-2.3); Phosphorus 4.4 mg/dL (2.5-4.5); Sodium 136 mmol/L (137-145)
[2020-08-13 15:53] LABS: LDL Cholesterol Direct 36 mg/dL
[2020-08-13] MEDS: PANTOPRAZOLE 40 MG TABLET PO (16:30)
[2020-08-13 19:56] VITALS: PULSE 73; RESP 18
[2020-08-13 20:00] VITALS: BP 98/59; PULSE 75; RESP 20; TEMP 37.1; O2SAT 99
[2020-08-14 04:00] VITALS: BP 102/68; PULSE 88; RESP 18; TEMP 37.1; O2SAT 100
[2020-08-14] MEDS: metroNIDAZOLE 500 MG/ISO 100ML 500 MG/100 ML BAG 120 MG IVPB (05:55)
[2020-08-14] MEDS: ACETAMINOPHEN 325 MG TABLET 650 MG PO (06:52)
[2020-08-14 08:20] VITALS: PULSE 88
[2020-08-14] MEDS: ASPIRIN 81 MG ENTERIC TABLET PO (08:20)
[2020-08-14] MEDS: OMEGA 3 POLYUNSAT FATTY ACIDS 1 GM CAP PO (08:20)
[2020-08-14] MEDS: ROSUVASTATIN 10 MG TABLET 20 MG PO (08:20)
[2020-08-14] MEDS: FLUTICASONE PROPIONATE 0.05% NA SPR 16 GM BTL (*BKC) 1 SPRAY NASAL (08:21)
[2020-08-14 09:23] VITALS: PULSE 86; RESP 16
[2020-08-14] MEDS: PANTOPRAZOLE 40 MG TABLET PO (10:45)
--- NOTE | 2020-08-14 11:06 | PM.DS ---
DS: Admitting Diagnosis Admitting Diagnosis Admitting Diagnosis: Blood in stool DS: Discharge Diagnosis Discharge Diagnosis (1) Diverticulosis: Code(s): K57.90 - Diverticulosis of intestine, part unspecified, without perforation or abscess without bleeding Status: Acute Assessment and Plan: Date of Admission 08/11/20 Date of Discharge/ DOS 08/14/20 Mr. Bruno is a 65 yo M with history of hypertension who presented to the ED for evaluation of blood in stool, abdominal cramping and diarrhea. CT abdomen/pelvis demonstrated diverticulosis with possible mild sigmoid diverticulitis. This was felt to be the source of his bleeding. He is a patient of Dr Cabrera's and Dr Cabrera was able to see him while hospitalized. He was initiated on IV antibiotics with levaquin and flagyl and provided supportive care with IV hydration and antiemetics. Patient's pain and diarrhea improved and his most recent BM prior to discharge was nonbloody. Stool studies so far are all negative. Patient showed improvement with the therapy outlined above and he was hemodynamically stable for discharge on 08/14/20 with oral antibiotics to complete the course and instructions to follow up with PCP and with Dr Cabrera in 6 weeks for outpatient colonoscopy. Blood pressures on lower end, patient had some dizziness with this. His propranolol was continued but his olmesartan was held during admission. He was asked to continue holding his olmesartan until he can see PCP in the next week. (2) Diverticulitis large intestine: Qualifiers: Diverticulitis bleeding: with bleeding Diverticulitis complication: without perforation or abscess Qualified Code(s): K57.33 - Diverticulitis of large intestine without perforation or abscess with bleeding Code(s): K57.32 - Diverticulitis of large intestine without perforation or abscess without bleeding Status: Acute Assessment and Plan: Treated with levaquin and flagyl. (3) Acute lower gastrointestinal bleeding: Code(s): K92.2 - Gastrointestinal hemorrhage, unspecified Status: Acute Assessment and Plan: Diverticular bleeding suspected. Patient will get outpatient colonoscopy by Dr Cabrera. (4) GERD (gastroesophageal reflux disease): Code(s): K21.9 - Gastro-esophageal reflux disease without esophagitis Status: Chronic Assessment and Plan: Continue PPI. (5) HTN (hypertension): Code(s): I10 - Essential (primary) hypertension Status: Chronic Assessment and Plan: History of hypertension with some mild symptomatic hypotension here. Continue beta blockade, hold ARB, follow up with PCP. (6) Asthma: Code(s): J45.909 - Unspecified asthma, uncomplicated Status: Chronic Assessment and Plan: No acute respiratory issues. Continue his home Symbicort, albuterol PRN. (7) Acute blood loss anemia: Code(s): D62 - Acute posthemorrhagic anemia Status: Acute Assessment and Plan: Secondary to suspected diverticular bleeding. H&H low but stable at discharge, repeat CBC 1 week outpatient. DS: Summary Time Spent with Patient Time attestation: Total time spent providing and/or coordinating discharge services: 35 minutes Exam Narrative: Exam Narrative: General: Male resting comfortably sitting up in bedside chair in no acute distress. HEENT: Normocephalic, EOMI, oral mucosa moist. Cardiovascular: Rate and rhythm are regular. Respiratory: Lungs clear to auscultation all villar. Non-labored breathing. Abdomen: Soft, non-tender, non-distended, bowel sounds present. Extremities: Peripheral pulses intact. No edema. Neur
[2020-08-14] MEDS: metroNIDAZOLE 250 MG TABLET 500 MG PO (11:44)
[2020-08-14 14:00] VITALS: BP 110/62; PULSE 69; RESP 16; TEMP 36.3; O2SAT 100
[2020-08-16 11:56] LABS: Vitamin D 1,25 (OH)2 Total 49 pg/mL (18-72); Vitamin D2 1,25 (OH)2 <8 pg/mL; Vitamin D3 1,25 (OH)2 49 pg/mL
--- NOTE | 2020-08-17 11:39 | PC.NURSE ---
Stool cx is negative.
== END 2020-08-14 15:18 | disposition home or self-care (01) | DRG 378 ==
LOC: ANHED 08-11 00:21 → ANH2MED 08-11 00:37
PROVIDERS: Internal Medicine Gastroenterology; Physician Assistant; Admitting Provider Internal Medicine; Emergency Provider Emergency Medicine; PCP Family Medicine Adolescent Medicine; Visit Provider Physician Assistant
DX: K57.33 Diverticulitis of large intestine without perforation or abscess with bleeding (principal); D62 Acute posthemorrhagic anemia; K21.9 Gastro-esophageal reflux disease without esophagitis; J45.909 Unspecified asthma, uncomplicated; I10 Essential (primary) hypertension; E78.5 Hyperlipidemia, unspecified; Z86.73 Personal history of transient ischemic attack (TIA), and cerebral infarction without residual deficits; Z87.891 Personal history of nicotine dependence
CPT/HCPCS: 36415; 74174; 80048; 80053; 80061; 82652; 83540; 83550; 83735; 84100; 84439; 84443; 84480; 85014; 85018; 85025; 85027; 86140; 87045; 87046; 87427; 94640; 96361; 96365; 96366; 96367; 96375; 96376; 99285; A9270; G0378; J1956; J7030; J7120; Q9967

== ENCOUNTER 2020-08-21 07:04 | Outpatient (CLI) | payer MEDICARE, SELFPAY ==
[2020-08-21 07:42] LABS: Basophils Percent Auto 0.6 % (0.2-1.2); Eosinophils Absolute Auto 0.2 K/mm3 (0-0.3); Eosinophils Percent Auto 2.7 % (0-4.4); Hematocrit 29.3 % (42.0-52.0); Hemoglobin 9.7 g/dL (14.0-18.0); Immature Granulocyte Absolute 0.04 K/mm3 (0.00-0.031); Immature Granulocyte Percent A 0.6 % (0-0.5); Lymphocytes Percent Auto 25.9 % (18.3-44.2); Mean Corpuscular HGB Conc 33.1 g/dl (32-36); Mean Corpuscular Hemoglobin 31.7 pg (26-34); Mean Corpuscular Volume 95.8 fl (80-100); Mean Platelet Volume 8.4 fl (7.4-10.4); Monocytes Absolute Auto 0.6 K/mm3 (0.1-0.6); Monocytes Percent Auto 9.5 % (2.6-8.5); Neutrophils Percent Auto 60.7 % (45.5-73.1); Platelet Count Result 359 k/mm3 (150-375); Red Blood Count 3.06 M/mm3 (4.6-6.20); Red Cell Distribution Width 13.4 % (11.5-14.5); White Blood Count 6.6 K/mm3 (4.5-10.0)
== END 2020-08-21 07:05 | disposition home or self-care (01) ==
PROVIDERS: PCP Family Medicine Adolescent Medicine; Visit Provider Physician Assistant
DX: D62 Acute posthemorrhagic anemia (principal)
CPT/HCPCS: 36415; 85025

== ENCOUNTER 2020-10-29 07:26 | Outpatient (CLI) | payer MEDICARE, SELFPAY ==
[2020-10-29 07:48] LABS: Basophils Absolute Auto 0.1 K/mm3 (0.0-0.1); Basophils Percent Auto 0.9 % (0.2-1.2); Eosinophils Absolute Auto 0.4 K/mm3 (0-0.3); Eosinophils Percent Auto 5.6 % (0-4.4); Hematocrit 42.9 % (42.0-52.0); Hemoglobin 14.5 g/dL (14.0-18.0); Immature Granulocyte Absolute 0.03 K/mm3 (0.00-0.031); Immature Granulocyte Percent A 0.4 % (0-0.5); Lymphocytes Absolute Auto 2.06 K/mm3 (0.9-3.2); Lymphocytes Percent Auto 26.2 % (18.3-44.2); Mean Corpuscular HGB Conc 33.8 g/dl (32-36); Mean Corpuscular Hemoglobin 31.7 pg (26-34); Mean Corpuscular Volume 93.7 fl (80-100); Mean Platelet Volume 8.8 fl (7.4-10.4); Monocytes Absolute Auto 0.7 K/mm3 (0.1-0.6); Monocytes Percent Auto 8.4 % (2.6-8.5); Neutrophils Absolute Auto 4.6 K/mm3 (1.3-6.7); Neutrophils Percent Auto 58.5 % (45.5-73.1); Platelet Count Result 271 k/mm3 (150-375); Red Blood Count 4.58 M/mm3 (4.6-6.20); Red Cell Distribution Width 12.2 % (11.5-14.5); White Blood Count 7.9 K/mm3 (4.5-10.0)
== END 2020-10-29 07:27 | disposition home or self-care (01) ==
PROVIDERS: PCP Family Medicine Adolescent Medicine; Visit Provider Internal Medicine Gastroenterology
DX: D64.9 Anemia, unspecified (principal)
CPT/HCPCS: 36415; 85025

== ENCOUNTER 2020-11-30 08:08 | Outpatient (CLI) | payer MEDICARE, SELFPAY ==
[2020-11-30 08:48] LABS: Basophils Absolute Auto 0.1 K/mm3 (0.0-0.1); Basophils Percent Auto 0.7 % (0.2-1.2); Eosinophils Absolute Auto 0.3 K/mm3 (0-0.3); Eosinophils Percent Auto 3.4 % (0-4.4); Hematocrit 41.9 % (42.0-52.0); Hemoglobin 14.5 g/dL (14.0-18.0); Immature Granulocyte Absolute 0.03 K/mm3 (0.00-0.031); Immature Granulocyte Percent A 0.4 % (0-0.5); Lymphocytes Percent Auto 25.6 % (18.3-44.2); Mean Corpuscular HGB Conc 34.6 g/dl (32-36); Mean Corpuscular Hemoglobin 31.9 pg (26-34); Mean Corpuscular Volume 92.3 fl (80-100); Monocytes Absolute Auto 0.7 K/mm3 (0.1-0.6); Monocytes Percent Auto 9.8 % (2.6-8.5); Neutrophils Absolute Auto 4.5 K/mm3 (1.3-6.7); Neutrophils Percent Auto 60.1 % (45.5-73.1); Platelet Count Result 255 k/mm3 (150-375); Red Blood Count 4.54 M/mm3 (4.6-6.20); Red Cell Distribution Width 12.5 % (11.5-14.5); White Blood Count 7.4 K/mm3 (4.5-10.0)
[2020-11-30 09:05] LABS: Transferrin 243 mg/dL (206-381)
[2020-11-30 10:05] LABS: Folic Acid 11.2 ng/mL (2.76->20)
[2020-11-30 12:09] LABS: Iron 162 ug/dL (49-181)
[2020-11-30 12:18] LABS: Percent Iron Saturation 51 % (20-50)
== END 2020-11-30 08:09 | disposition home or self-care (01) ==
PROVIDERS: PCP Family Medicine Adolescent Medicine; Visit Provider Physician Assistant Medical
DX: D64.9 Anemia, unspecified (principal)
CPT/HCPCS: 36415; 82728; 82746; 83540; 83550; 84466; 85025

== ENCOUNTER → 2023-01-06 08:51 | Outpatient (CLI) | payer MEDICARE, SELFPAY ==
--- NOTE | ~2023-01-06 | XR_ITS ---
Lumbosacral Spine: AP and lateral views Clinical History: Pain Findings: The normal lordotic curve is maintained. No acute fracture seen. Minimal grade 1 anterolist hesis of L4 over L5 present. There is moderate degenerative disc narrowing L5-S1. Remaining lumbar le vels demonstrate minimal degenerative disc change. There is facet joint degenerative change throughou t the lumbar spine, worst from L3 through S1. The sacroiliac joints are normally outlined. Impression: [id number] degenerative spondylosis, as detailed above. Minimal grade 1 anterolisthesis of L4 over L5. Reviewed, dictated and finalized at location M. Impression: [id number] degenerative spondylosis, as detailed above. Minimal grade 1 anterolisthesis of L4 over L5.
== END ==
PROVIDERS: PCP Family Medicine Adolescent Medicine; Visit Provider Physician Assistant
DX: M54.41 Lumbago with sciatica, right side (principal); M47.896 Other spondylosis, lumbar region
CPT/HCPCS: 72100

== ENCOUNTER 2025-02-12 08:04 | Emergency (ER) | payer MEDICARE, SELFPAY ==
[2025-02-12 08:24] VITALS: BP 136/85; PULSE 96; RESP 16; TEMP 36.1; O2SAT 99
[2025-02-12 08:25] LABS: Glucose Point of Care 98 mg/dl (65-105)
--- NOTE | 2025-02-12 08:32 | ED.DIZZY ---
HPI - Dizziness General Chief Complaint: Dizziness Stated Complaint: DIZZY/CONFUSION Time Seen by Provider: 02/12/25 08:09 Source: patient and RN notes reviewed Mode of arrival: ambulatory Limitations: no limitations History of Present Illness HPI Narrative: 69-year-old male with a history of hypertension, CAD and CVA, and vertigo, presented for complaint of dizziness and confusion. Onset this morning. Patient is accompanied by who said he could not remember what they did yesterday which is unusual for him. Patient describes dizziness as feeling off-balance and sometimes worse with standing up. Endorses blood pressures have been well controlled at home after an increase in losartan by pcp last week; also reports normal labs last week. Pt denies chest pain, palpitations, shortness of breath, Urinary complaints, nausea, vomiting, fevers or lethargy. Related Data Home Medications ?Medication ?Instructions ?Recorded ?Confirmed ?Last Taken ?Type aspirin 81 mg tablet,delayed 81 mg PO DAILY 04/18/20 02/06/25 Unknown History release albuterol 90 mcg/actuation aerosol See Rx Instructions .Route 08/11/20 02/06/25 Unknown History inhaler .COMPLEX SHORTNESS OF BREATH Bifidobacterium infantis 4 mg 4 mg PO DAILY 02/06/25 02/06/25 Unknown History capsule (Align (B.infantis)) Allergies Allergy/AdvReac Type Severity Reaction Status Date / Time No Known Allergies Allergy Verified 02/12/25 08:29 Review of Systems Review of Systems: CONSTITUTIONAL: Denies body aches, fever, chills, or sweats. EYES: Denies visual changes, redness, or discharge. ENT: Denies rhinorrhea, congestion, sore throat, or otalgia. CARDIOVASCULAR: Denies chest pain, palpitations, or edema. RESPIRATORY: Denies cough or dyspnea. GASTROINTESTINAL: Denies abdominal pain, nausea, vomiting, or diarrhea. GENITOURINARY: Denies urinary changes SKIN: Denies rash NEUROLOGIC: Endorses dizziness, chronic hands tingling denies headache, denies numbness, or weakness All systems reviewed & are unremarkable except as noted in HPI and below [facility] Past Medical History Medical History Benign prostatic hyperplasia with lower urinary tract symptoms Hypothyroid Coronary artery disease without angina pectoris CT scan 5/16 Bilateral carotid artery stenosis 09/2018 Asthma, moderate persistent Mixed hyperlipidemia Diverticula, colon Adenomatous colon polyp Diastolic dysfunction without heart failure Noted on echocardiogram May 2018 demonstrating grade 1 diastolic dysfunction EF 60-65% with small atheroma HTN (hypertension) GERD (gastroesophageal reflux disease) CVA (cerebral vascular accident) Right lacunar infarct 2006 Surgical History Surgical History History of nasal surgery H/O colonoscopy Screening colonoscopy 04/15/2020 with polypectomy x2 of ascending colon with recommended repeat colonoscopy in 5 years Family History Family History Father , in his late 80s Diabetes mellitus Hypertension Asthma Dementia Cerebrovascular accident Sibling Patient's sister is in good health Patient's brother is in good health Mother , mid July 2020 at age 88 Hyperlipidemia Cerebrovascular accident Other Carcinoma of colon Malignant neoplasm of prostate Other Colon polyp Social History Social History Social History: Primary care physician: Dr. Karel Alvarado Code status: Full code Smoking packs per day: 0.75 Smoking cigarettes per day: 15.0 Years smoked: 5 Smoking pack-years: 3.75 Smoking status: Former smoker Tobacco type: cigarettes Smoking end date: 10/12/80 Alcohol intake: current Drinks per week: 10 Alcohol use details: He drinks a couple of mixed drinks daily. Substance use: never Substance use type: does not use Lack of Transportation: No Lack of Food: Never True Current Housing: I Have Housing Concerned About Future Housing: No Difficulty Paying Gas/Electric Bills: No Difficulty Paying for Meds: No Currently Unemployed: No Education: Decline to Answer Difficulty w/ Childcare or Family Care: No Living arrangements: with family Additional living arrangements comments: He lives with his of 48 years. They have 4 adult children under relatively healthy. They have 9 grand children. Occupation/Education: retired Additional occupation/education comments: He is retired from a [employer]. Gender identity (if verbalized by the patient): Male Sexual Orientation (if Verbalized by the Patient): Straight or Heterosexual Spiritual care concerns: No Agree to blood products: Yes Comments At time of signature, I have reviewed and agree with nursing past medical, surgical, social and family history unless otherwise noted. Please see nursing chart for further information. There is no relevant family history pertinent to the presenting complaint Exam Narrative: GENERAL: Well-appearing, well-nourished HEAD: Normocephalic, atraumatic. EYES: PERRLA, EOMI. ENT: Mucous membranes pink and moist. NECK: Normal AROM. Supple. No lymphadenopathy. CHEST: No respiratory distress. Clear to auscultation. HEART: Regular rate and rhythm. No murmur appreciated. Normal peripheral pulses. ABDOMEN: Soft, nontender, nondistended, normal active bowel sounds. EXTREMITIES: Normal range of motion. No edema. SKIN: Warm, dry, no rash. Capillary refill normal. Normal skin turgor. NEURO:No focal deficits. Alert and oriented x3; slow to answer at times. EOMs intact without nystagmus. No facial droop/asymmetry noted bilaterally. Grimace intact. Intact sensation in face. Hearing intact bilaterally. Shoulder shrug intact. Strength 5/5 bilateral upper extremities. Strength 5/5 bilateral lower extremities. Ambulatory exam with a normal based, steady gait. PSYCH: Normal affect. Course Course Emergency Course: Patient is aware of diagnosis, understands and agrees to treatment plan. Anticipatory guidance given. Patient agrees to follow-up as directed and is aware of reasons to seek care at the emergency department. Portions of this record may have been created with voice recognition software Level of Care: Express Care Visit Vital Signs Vital signs: Vital Signs Temperature 96.9 F L 02/12/25 08:24 Pulse Rate 96 02/12/25 08:24 Respiratory Rate 16 02/12/25 08:24 Blood Pressure 136/85 02/12/25 08:24 Pulse Oximetry 99 02/12/25 08:24 Temperature 96.9 F L 02/12/25 08:24 Pulse Rate 96 02/12/25 08:24 Respiratory Rate 16 02/12/25 08:24 Blood Pressure 136/85 02/12/25 08:24 Pulse Oximetry 99 02/12/25 08:24 Transfer Transfered to: [facility] Transportation: Other ( private vehicle) Transfer rationale: Pt is agreeable to transfer. Requests transfer to [facility] via private vehicle; decline ambulance. Risks of transportation reviewed with pt including injury, worsening of condition and . v/u. will be driving pt; Report called to hospital, spoke with Dr Ruelas, accepting physician. Pt is in stable condition at time of transfer. Advised to remain NPO and go directly to the hospital. MDM - Dizziness MDM Narrative Medical decision making narrative: Pt presented with dizziness and confusion per . VSS. BS 98. Most recent labs WNL. Neuro exam unremarkable. Advised ER transfer given his history. Differential Diagnosis Differential diagnosis: Likely benign paroxysmal positional vertigo, orthostatic hypotension, vertebral basilar insufficiency, cerebrovascular accident, acute vestibular neuronitis, transient cerebral ischemia and other (anemia, dehydration, sepsis, arrhythmia, labyrinthitis, sinusitis, migraine) Lab Data Labs: Lab Results 02/12/25 Range/Units 08:21 POC Capillary Glucose 98 (65-105) mg/dl Discharge Plan Discharge Clinical Impression: Dizziness Patient Disposition: Acute Care Hospital Condition: Stable Patient Language: Japanese Prescriptions: No Action Align (B.infantis) 4 mg capsule 4 mg PO DAILY losartan 100 mg tablet 100 mg PO DAILY Qty: 90 0RF aspirin 81 mg Tablet,Delayed Release (Dr/Ec) 81 mg PO DAILY albuterol 90 mcg/actuation Aerosol See Rx Instructions .ROUTE .COMPLEX Rx Instructions: albuterol 2 puffs prn shortness of breath QID icosapent ethyl [Vascepa] 1 gram capsule 2 g PO BID Qty: 400 2RF meclizine 25 mg tablet 25 mg PO QID Qty: 30 1RF pantoprazole 20 mg tablet,delayed release (DR/EC) See Rx Instructions .ROUTE .COMPLEX Qty: 200 1RF Dose Instruction: TAKE 2 TABLETS BY MOUTH IN THE MORNING Rx Instructions: TAKE 2 TABLETS BY MOUTH IN THE MORNING sildenafil 100 mg tablet 100 mg PO DAILY PRN (Reason: sexual activity) Qty: 10 8RF Rx Instructions: administer 30 minutes to 4 hours before activity rosuvastatin 20 mg tablet 20 mg PO DAILY Qty: 100 2RF clopidogrel [Plavix] 75 mg tablet 75 mg PO DAILY Qty: 100 2RF Follow-up/Referrals: Karel Ramirez MD [Primary Care Provider] - Time of Disposition: 08:40 Quality [place] Coma Scale Verbal: Oriented and Alert Motor: Follows Commands Acute Stroke Pre-Treatment Evaluation Acute Ischemic Stroke Pretreatment Evaluation: Acute Ischemic Stroke Pre-Treatment Evaluation Inclusion Criteria (must answer yes to questions 1 and 2) 1. Age 18 Years Or Older: No 2. Onset Of Stroke Symptoms Well Established To Be Less Than 3 Hours: No 3. Clinical Diagnosis Of Ischemic Stroke Causing Measureable Neurological Deficit And A Non-Contrast Head CT Showing NO Hemorrage: No Contraindications (0-3 Hours) 5. Stroke Or Severe Head Trauma Within Past 3 Months: No 6. Known History Of Intracranial Hemorrage: No 7. Symptoms Or Clinical Presentation Suggestion Of Subarachnoid hemorrhage: No 8. Gastrointestinal Or Urinary Tract hemorrhage Within 21 Days: No 9. Prothrombin Time (TP) Greater Than 15 Seconds or An INR Greater Than 1.7 Or An Elevated Activated Partial Throboplastin Time (aPTT): No 10. Platelet Count <100,000/ml: No 11. Glucose Lower Than 50mg/dl Or Greater than 400mg/dl: No 12. Seizure At Onset Stroke: No 13. Acute Myocardial Infarction Or Post Myocardial Infarction Pericarditis: No 14. Arterial Puncture At A Non-Compressible Site, Biopsy of Internal Organ, Within The Preceding 7 Days: No 15. Major Surgery Or Serious Trauma (Besides Head) In The Previous 14 Days: No 16. Uncontrolled Or Sustained SBP (systolic>185 mmHg) or DBP (diastolic>110 mmHg) Or Requiring Aggressive Treatment To Lower: No 17. : No Contraindications (3-4.5 Hours) 1. Age Less Than 18 or Greater Than 80 years: No 2. Severe Stroke Assessed Clinically (NIHSS Score Greater Than 25): No 3. Combination Or Previous Stroke Or Diabetes Mellitus: No 4. Symptoms Minor Or Rapidly Improving: No
== END 2025-02-12 08:32 | disposition short-term general hospital (02) ==
PROVIDERS: Emergency Provider Nurse Practitioner Family; PCP Family Medicine Adolescent Medicine
DX: R42 Dizziness and giddiness (principal); Z87.891 Personal history of nicotine dependence; N40.1 Benign prostatic hyperplasia with lower urinary tract symptoms; E03.9 Hypothyroidism, unspecified; I25.10 Atherosclerotic heart disease of native coronary artery without angina pectoris; I65.23 Occlusion and stenosis of bilateral carotid arteries; I10 Essential (primary) hypertension; E78.2 Mixed hyperlipidemia; K21.9 Gastro-esophageal reflux disease without esophagitis; J45.909 Unspecified asthma, uncomplicated; Z86.73 Personal history of transient ischemic attack (TIA), and cerebral infarction without residual deficits
CPT/HCPCS: 82948; 99213; G0463

== ENCOUNTER 2025-02-12 08:49 | Observation (INO) | payer MEDICARE, SELFPAY ==
[2025-02-12] VITALS (8 sets, daily range): BP systolic 124–150; BP diastolic 68–87; PULSE 77–98; RESP 16–18; TEMP 36.3–36.6; O2SAT 100; BMI 26.5
--- NOTE | ~2025-02-12 | CT_ITS ---
CTA brain carotid Ordering provider: Marcus Ruelas MD History: . dizziness AMS previous TIA . Comparison: September 24, 2018 Technique: CT angiogram head and neck was performed following timed intravenous injection of contrast . Thin slice axial images and reformatted coronal images were obtained. Three dimensional reformatted images of the brain were also obtained using a Kickboard workstation. Radiation reduction technique ut ilized.The dose-length product was 605.33 mGy-cm. 100 mL Omnipaque 350 was given IV. FINDINGS: HEAD: --ANTERIOR AND MIDDLE CEREBRAL ARTERIES AND BRANCHES: Normal caliber and contour. --INTERNAL CAROTID ARTERIES: Normal caliber and contour. --BASILAR ARTERY AND BRANCHES: Normal caliber and contour. No atheromatous disease. --POSTERIOR CEREBRAL ARTERIES: Normal caliber and contour --POSTERIOR COMMUNICATING ARTERIES: The right is demonstrated. The left is not visualized which is pr obably related to congenital absence or small size. --ANEURYSM: None visualized. --BRAIN: Deep white matter ischemic changes. Old infarct in the right internal capsule. --BONES AND SUPERFICIAL SOFT TISSUES: Normal. --PARANASAL SINUSES AND MASTOIDS: Bilateral maxillary sinus disease with thickened bone suggestive of chronic sinusitis. Bilateral ethmoid sinus disease. NECK: --RIGHT CERVICAL CAROTID SYSTEM: Mild atheromatous disease of the carotid bulb and proximal internal carotid artery without significant stenosis. Percent stenosis per NASCET criteria is 20% No carotid dissection. Otherwise, no significant atheromatous disease or stenosis of the cervical carotid system . --LEFT CERVICAL CAROTID SYSTEM: Mild atheromatous disease of the carotid bulb and proximal internal c arotid artery without significant stenosis. Percent stenosis per NASCET criteria is 10%. No carotid dissection. Otherwise, no significant atheromatous disease or stenosis of the cervical carotid system. --VERTEBRAL ARTERIES: Normal caliber and contour. --VISUALIZED AORTIC ARCH AND BRANCHING VESSELS: no significant stenosis. --SOFT TISSUES: Normal. --CERVICAL SPINE: Age appropriate degenerative changes. IMPRESSION: 1. Normal CTA head. 2. CTA of the neck.. Percent stenosis per NASCET criteria is 20% on the right and 10% on the left. Reviewed, dictated and finalized at location A.
--- NOTE | ~2025-02-12 | XR_ITS ---
XR chest 2V Ordering provider: Marcus Ruelas MD History: 69 years Male with . dizziness some confusion . Comparison: March 24, 2018 FINDINGS: MEDIASTINUM: The cardiac silhouette is not enlarged. LUNGS: No infiltrates, effusions or pneumothorax. OTHER: No free air under the diaphragm. Degenerative changes of the spine. IMPRESSION: No acute cardiopulmonary pathology. Reviewed, dictated and finalized at location A.
--- NOTE | ~2025-02-12 | MR_ITS ---
EXAMINATION: MR brain/brain stem wo/w con DATE: 02/12/2025 14:59 INDICATION: TIA TECHNIQUE: Magnetic resonance imaging (MRI) of the brain and brainstem was performed with 16 mL ProHa nce intravenous contrast. Sequences included sagittal and axial T1-weighted SE, axial diffusion-weigh makenzie FS EPI ASSET, axial T2*-weighted GRE, axial T2-weighted FLAIR Propeller, and axial T2-weighted Pr opeller. Postcontrast axial and coronal T1-weighted SE was obtained. Apparent diffusion coefficient ( ADC) maps were created. COMPARISON: 09/24/2018; CTA brain carotid 02/12/2025. FINDINGS: No abnormal restricted diffusion to suggest acute ischemic infarct. Old right caudate head and right internal capsular infarcts. No MRI evidence of hemorrhage or extra-axial collection. No suspicious fo ci of susceptibility to suggest prior intraparenchymal hemorrhage. Scattered foci of white matter hyp erintensity, likely representing mild small vessel ischemic disease. Mild generalized parenchymal vol ume loss. The basilar cisterns are patent. Flow voids are preserved. Pansinus mucosal thickening. Danette bes and orbital contents are within normal limits. No abnormal enhancing lesion. IMPRESSION: No acute ischemic infarct. Pansinus mucoperiosteal disease. Reviewed, dictated and finalized at location K.
--- OUTSIDE RECORDS SUMMARY | 2025-02-12 08:51 | XMS_ITS | Clinical Summary ---
Author Organization [facility] Address [address] [address] Phone Care Team Providers Care Radar Mechanic Name Role Phone Karel Ramirez MD Primary Care Provider + Allergies No known active allergies Medications clopidogrel (PLAVIX) 75 MG Tablet 0 Active propranolol (INDERAL LA) 80 MG CAPSULE SR 24 HR 0 Active rosuvastatin (CRESTOR) 20 MG Tablet 0 Active pantoprazole (PROTONIX) 40 MG Tablet Delayed Response 0 Active fluticasone (FLONASE) 50 MCG/ACT Suspension 0 Active aspirin EC (Aspirin Low Dose) 81 MG Tablet Delayed Response Take 81 mg by mouth daily. Active albuterol (Ventolin HFA) 108 (90 Base) MCG/ACT Aerosol Solution take 2 Puffs by inhalation every 4 hours as needed. Active Ferrous Sulfate (IRON PO) Take by mouth. Activ e Icosapent Ethyl (Vascepa) 1 g Capsule Take by mouth. Activ e Active Problems Problem Noted Date Diagnosed Date Diverticulosis 11/22/2020 Anemia 11/22/2020 Immunizations Immunization Administration Dates Next Due Influenza Vaccine, MDCK,quadrivalent, pres free 07/21/2018 Influenza, Seasonal, Injectable, Undefined 10/03 Influenza, Trivalent, Adjuvanted, PF 09/28/2019 Pneumococcal Vaccine - 13 Valent 09/28/2019 Zoster Vaccine Recombinant 12/12/2019,09/28/2019 Social History Tobacco Use Types Packs/Day Years Used Date Smoking Tobacco: Former Smokeless Tobacco: Never Tobacco Cessation:Counseling Given: No Sexually Active Control Partners Comments Yes Sex and Gender Information Value Date Recorded Sex Assigned at Not on file Legal Sex Male 7:47 PM CDT Gender Identity Not on file Sexual Orientation Not on file Last Filed Vital Signs Vital Sign Reading Time Taken Comments Blood Pressure 160/86 11/22/2020 8:18 AM DEBUG TECHNICIAN Pulse 71 11/22/2020 8:18 AM DEBUG TECHNICIAN Temperature 36.7 C (98 F) 11/22/2020 8:18 AM DEBUG TECHNICIAN Respiratory Rate 22 11/22/2020 8:18 AM DEBUG TECHNICIAN Oxygen Saturation 98% 11/22/2020 8:18 AM DEBUG TECHNICIAN Inhaled Oxygen Concentration - - Weight 77.1 kg (170 lb) 11/22/2020 8:18 AM DEBUG TECHNICIAN Height 172.7 cm (5' 8 ) 11/22/2020 8:18 AM DEBUG TECHNICIAN Body Mass Index 25.85 11/22/2020 8:18 AM DEBUG TECHNICIAN Plan of Treatment Health Maintenance Due Date Last Done Comments Hepatitis C Virus (HCV) Screening 1955 TdaP Immunization 1955 Cologuard 2004 Immunochemical Fecal Occult Blood 2004 Pneumococcal Immunization (5 0+ years) (2 of 2 - PPSV23) 09/28/2020 09/28/2019 Influenza Immunization (#1) 06/12/202409/11, 07/21/2018, 10/03/2015 SARS-COV-2 Immunization ( season) 2024 09/19/2021, 12/27/2020, 12/06/2020 Colonoscopy 04/25/2025 04/25/2020 Colorectal Cancer Screening 04/25/2025 Respiratory Syncytial Virus (RSV) Immunization (Adult) (1 - 1-dose 75+ series) 2029 04/25/2020 Pneumococcal Immunization Combined Discontinued 09/28/2019 Zoster Immunization Completed 12/12/2019, 09/28/2019 Hepatitis B Immunization Aged Out No longer eligible based on patient's age to complete this topic Meningococcal Immunization (ACWY) Aged Out No longer eligible based on patient's age to complete this topic Rotavirus Immunization Aged Out No lo nger eligible based on patient's age to complete this topic Procedures Procedure Name Priority Date/Time Associated Diagnosis Comments COLONOSCOPY Routine 04/25/2020 from Last 3 Months or Most Recently Relevant to Health Maintenance Results * COLONOSCOPY (04/25/2020) Abraham Cabrera DO PROCEDURE/MINOR SURGICAL ORDERA BLES Final Result from Last 3 Months or Most Recently Relevant to Health Maintenance Insurance MEDICARE C [facility] on file Care Teams Radar Mechanic Relationship Specialty Start Date End Date Karel Ramirez MD [address] [place] [address] PCP - General Family Medicine 12/16/19
--- OUTSIDE RECORDS SUMMARY | 2025-02-12 08:51 | XMS_ITS | Clinical Summary ---
Author Organization [facility] Address [address] [place] [id number] Care Team Providers Care Seafood Service Team Member Name Role Phone Unavailable Primary Care Provider Unavailabl e Social History Tobacco Use Types Packs/Day Years Used Date Smoking Tobacco: Never Assessed Sex and Gender Information Value Date Recorded Sex Assigned at Not on file Legal Sex Male 4:46 PM CDT Gender Identity Not on file Sexual Orientation Not on file Plan of Treatment Health Maintenance Due Date Last Done Comments Colorectal Cancer Screening Colonoscopy (10 Years) 1955 Hepatitis C 1972 DTaP, Tdap and Td Vaccines ( 1 - Tdap) 1973 Pneumococcal Vaccine: 50+ Ye ars (1 of 1 - PCV) 2004 Zoster Vaccines (1 of 2) 2004 COVID-19 Vaccine ( - 2023-2 5 season) 2024 RSV Immunization or 60+ Years (1 - 1-dose 75+ series) 2029 Meningococcal B Vaccine Aged Out No l onger eligible based on patient's age to complete this topic Meningococcal Vaccine Aged Out No letty dalia eligible based on patient's age to complete this topic RSV Immunizations Under 20 Months Aged Out No longer eligible based on patient's age to complete this topic
--- NOTE | 2025-02-12 08:56 | ECG_ITS ---
Test Date: 2025-02-12 09:21:12 Measurements Intervals [place] Rate: 82 P: 57 CO: 209 QRS: 28 QRSD: 93 T: 34 QT: 349 QTc: 408 Interpretive Statements SINUS RHYTHM No previous ECG available for comparison Electronically Signed On 02-12-2025 16:05:29 CDT by Phillip Hussein
[2025-02-12 09:14] LABS: Basophils Absolute Auto 0.1 K/mm3 (0.0-0.1); Basophils Percent Auto 1.3 % (0.2-1.2); Eosinophils Absolute Auto 0.2 K/mm3 (0-0.3); Eosinophils Percent Auto 2.8 % (0-4.4); Hematocrit 43.7 % (42.0-52.0); Hemoglobin 14.4 g/dL (14.0-18.0); Immature Granulocyte Absolute 0.03 K/mm3 (0.00-0.031); Immature Granulocyte Percent A 0.4 % (0-0.5); Lymphocytes Absolute Auto 1.55 K/mm3 (0.9-3.2); Lymphocytes Percent Auto 21.8 % (18.3-44.2); Mean Corpuscular Hemoglobin 31.3 pg (26-34); Mean Platelet Volume 8.7 fl (7.4-10.4); Monocytes Absolute Auto 0.5 K/mm3 (0.1-0.6); Monocytes Percent Auto 7.6 % (2.6-8.5); Neutrophils Absolute Auto 4.7 K/mm3 (1.3-6.7); Neutrophils Percent Auto 66.1 % (45.5-73.1); Platelet Count Result 314 k/mm3 (150-375); Red Cell Distribution Width 12.4 % (11.5-14.5); White Blood Count 7.1 K/mm3 (4.5-10.0)
[2025-02-12 09:26] LABS: Prothrombin Time 13.2 Seconds (11.1-14.7)
[2025-02-12 09:27] LABS: Alanine Aminotransferase 29 U/L (6-50); Albumin Level 4.7 g/dL (3.5-5.1); Alkaline Phosphatase 68 U/L (38-126); Anion Gap 9 mmol/L (4-12); Aspartate Amino Transferase 30 U/L (17-59); Bilirubin,Total 0.9 mg/dL (0.2-1.3); Blood Urea Nitrogen 13 mg/dL (9-20); Calcium 9.3 mg/dL (8.4-10.2); Carbon Dioxide 26 mmol/L (22-30); Chloride 104 mmol/L (98-107); Estimated CRCL calculation 60 ml/min; Estimated Glomerular Filt Rate > 60; Glucose 97 mg/dL (65-110); Partial Thromboplastin Time 23.3 Seconds (22.3-36.8); Potassium 4.4 mmol/L (3.4-5.0); Sodium 139 mmol/L (137-145)
[2025-02-12 09:35] LABS: Troponin I < 0.012 ng/mL (0.000-0.034)
[2025-02-12 09:44] LABS: Add Urine Microscopic? YES; Appearance Urine Clear (Clear); Bacteria Urine None Seen /hpf; Bilirubin Urine Negative (Negative); Blood Urine Negative (Negative); Color Urine Yellow (Yellow); Glucose Urine UA Negative (Negative); Ketones Urine Negative (Negative); Leukocyte Esterase Ur Negative LEU/UL (Negative); Mucus Urine Present /lpf; Need Manual Microscopic Reviewed; Nitrate Urine Negative (Negative); Non Pathogenic Casts 0-2; Protein Urine 1+ mg/dL (Negative); RBC Urine 0-2 /hpf (0-2); Specific Grav Ur 1.018 (1.001-1.035); Squamous Epithelial Cell Urine None Seen /hpf (Few); Urobilinogen Urine 0.2 mg/dL (<2.0); WBC Urine 0-5 /hpf (0-3); pH Urine 5.5 (5.0-9.0)
--- OUTSIDE RECORDS SUMMARY | 2025-02-12 10:11 | XMS_ITS | Clinical Summary ---
Author Organization [facility] Address [address] [address] Phone Care Team Providers Care Company Secretary Name Role Phone Karel Ramirez MD Primary [...] Comments Blood Pressure 160/86 11/22/2020 8:18 AM NEWSPAPER STUFFER Pulse 71 11/22/2020 8:18 AM NEWSPAPER STUFFER Temperature 36.7 C (98 F) 11/22/2020 8:18 AM NEWSPAPER STUFFER Respiratory Rate 22 11/22/2020 8:18 AM NEWSPAPER STUFFER Oxygen Saturation 98% 11/22/2020 8:18 AM NEWSPAPER STUFFER Inhaled Oxygen Concentration - - Weight 77.1 kg (170 lb) 11/22/2020 8:18 AM NEWSPAPER STUFFER Height 172.7 cm (5' 8 ) 11/22/2020 8:18 AM NEWSPAPER STUFFER Body Mass Index 25.85 11/22/2020 8:18 AM NEWSPAPER STUFFER Plan of Treatment Health Maintenance Due Date [...] Relevant to Health Maintenance Insurance [facility]ICARE [facility] on file Care Teams Company Secretary Relationship Specialty Start Date End Date Karel Ramirez MD [address] [place] [address] PCP - General Family Medicine 12/16/19
--- OUTSIDE RECORDS SUMMARY | 2025-02-12 10:11 | XMS_ITS | Clinical Summary ---
Author Organization [facility] Address [address] [place] [id number] Care Team Providers Care Plaster Machine Tender Name Role Phone Unavailable Primary Care Provider [...]
--- NOTE | 2025-02-12 11:27 | ED.GENADULT ---
HPI - General Adult General Chief complaint: Dizziness Stated complaint: woke up dizzy and disoriented, CECE 02/10 2300 Time Seen by Provider: 02/12/25 10:05 History of Present Illness HPI narrative: Patient is a 69-year-old male who presents ER with concerns for confusion. Last known well was last night around 9:00 p.m.. Reports he woke up this morning and had amnesia to activities that he was involved in yesterday. He cannot remember going to the farm which he typically does. reports he was like this for an hour and half. No slurred speech her arm weakness/numbness. Patient has normal now. Patient also reports that he has intermittent dizziness has been ongoing for 2 months that is worsened by head turning or rolling over in bed. Patient has history of stroke in the past. He is on clopidogrel. He also takes meclizine for his dizziness. Related Data Home Medications ?Medication ?Instructions ?Recorded ?Confirmed ?Last Taken ?Type aspirin 81 mg tablet,delayed 81 mg PO DAILY 04/18/20 02/12/25 02/11/25 History release albuterol 90 mcg/actuation aerosol See Rx Instructions .Route 08/11/20 02/12/25 02/11/25 History inhaler .COMPLEX SHORTNESS OF BREATH Bifidobacterium infantis 4 mg 4 mg PO DAILY 02/06/25 02/12/25 02/11/25 History capsule (Align (B.infantis)) fluticasone propionate 50 2 spray intranasal DAILY 02/12/25 02/12/25 02/11/25 History mcg/actuation nasal spray,suspension (Aller-Romero) Allergies Allergy/AdvReac Type Severity Reaction Status Date / Time No Known Allergies Allergy Verified 02/12/25 08:29 Review of Systems Review of Systems: All systems reviewed & are unremarkable except as noted in HPI and below Constitutional: Constitutional: Reports no additional constitutional complaints ENT: Reports system reviewed and no additional complaints, except as documented Cardiovascular: Cardiovascular: Reports no additional cardiovascular complaints Respiratory: Respiratory: Reports no additional respiratory complaints Genitourinary: Genitourinary: Reports no additional male genitourinary complaints [facility] Past Medical History Medical History (Updated 02/12/25 @ 18:24 by Vicente Ma MD) TIA (transient ischemic attack) Altered mental status Benign prostatic hyperplasia with lower urinary tract symptoms Hypothyroid Coronary artery disease without angina pectoris CT scan 02/24 Bilateral carotid artery stenosis 09/2018 Asthma, moderate persistent Mixed hyperlipidemia Diverticula, colon Adenomatous colon polyp Diastolic dysfunction without heart failure Noted on echocardiogram May 2018 demonstrating grade 1 diastolic dysfunction EF 60-65% with small atheroma HTN (hypertension) GERD (gastroesophageal reflux disease) CVA (cerebral vascular accident) Right lacunar infarct 2006 Surgical History Surgical History History of nasal surgery H/O colonoscopy Screening colonoscopy 04/15/2020 with polypectomy x2 of ascending colon with recommended repeat colonoscopy in 5 years Family History Family History Father , in his late 80s Diabetes mellitus Hypertension Asthma Dementia Cerebrovascular accident Sibling Patient's sister is in good health Patient's brother is in good health Mother , mid July 2020 at age 88 Hyperlipidemia Cerebrovascular accident Other Carcinoma of colon Malignant neoplasm of prostate Other Colon polyp Social History Social History Social History: Primary care physician: Dr. Karel Alvarado Code status: Full code Smoking packs per day: 0.75 Smoking cigarettes per day: 15.0 Years smoked: 5 Smoking pack-years: 3.75 Smoking status: Former smoker Tobacco type: cigarettes Smoking end date: 10/12/80 Alcohol intake: current Drinks per week: 14 Alcohol use details: He drinks a couple of mixed drinks daily. Substance use: current Substance use type: does not use Do You Feel Safe in your Home?: Yes Lack of Transportation: No Lack of Food: Never True Current Housing: I Have Housing Concerned About Future Housing: No Difficulty Paying Gas/Electric Bills: No Difficulty Paying for Meds: No Currently Unemployed: No Education: Associate Degree Difficulty w/ Childcare or Family Care: No Living arrangements: with family Additional living arrangements comments: He lives with his of 48 years. They have 4 adult children under relatively healthy. They have 9 grand children. Occupation/Education: retired Additional occupation/education comments: He is retired from a [employer]. Gender identity (if verbalized by the patient): Male Sexual Orientation (if Verbalized by the Patient): Straight or Heterosexual Spiritual care concerns: No Agree to blood products: Yes Exam Narrative: GENERAL: Well-appearing, well-nourished, and in no acute distress. HEAD: Normocephalic, atraumatic. EYES: PERRL and EOMI. ENT: Mucous membranes moist. CHEST: Clear to auscultation. No respiratory distress. HEART: Regular rate and rhythm. Normal peripheral pulses. ABDOMEN: Soft, nontender, nondistended. EXTREMITIES: Normal range of motion. No edema. SKIN: Warm, dry, no rash. NEURO: No focal deficits. NIH stroke scale 0. Alert and oriented x3. PSYCH: Normal mood and affect. Course Course Emergency Course: Patient resting comfortably. Discussed case with Neurology. Continue Plavix. Patient benefit from MRI. Patient willing to stay in hospital. Admit to hospitalist service. Vital Signs Vital signs: Vital Signs Temperature 97.5 F L 02/12/25 08:57 Pulse Rate 89 02/12/25 08:57 Respiratory Rate 16 02/12/25 08:57 Blood Pressure 150/81 H 02/12/25 08:57 Pulse Oximetry 100 02/12/25 08:57 Temperature 97.3 F L 02/12/25 13:44 Pulse Rate 84 02/12/25 16:00 Respiratory Rate 18 02/12/25 13:44 Blood Pressure 145/87 H 02/12/25 13:44 Pulse Oximetry 100 02/12/25 13:44 Oxygen Delivery Room Air 02/12/25 09:16 Medical Decision Making Vital Signs Vital Signs: Vital Signs Temperature 97.5 F L 02/12/25 08:57 Pulse Rate 89 02/12/25 08:57 Respiratory Rate 16 02/12/25 08:57 Blood Pressure 150/81 H 02/12/25 08:57 Pulse Oximetry 100 02/12/25 08:57 Temperature 97.3 F L 02/12/25 13:44 Pulse Rate 84 02/12/25 16:00 Respiratory Rate 18 02/12/25 13:44 Blood Pressure 145/87 H 02/12/25 13:44 Pulse Oximetry 100 02/12/25 13:44 Oxygen Delivery Room Air 02/12/25 09:16 Lab Data 02/12/25 09:08 02/12/25 09:08 Labs: Lab Results 02/12/25 02/12/25 Range/Units 09:08 09:18 WBC 7.1 (4.5-10.0) K/mm3 RBC 4.60 (4.6-6.20) M/mm3 Hgb 14.4 (14.0-18.0) g/dL Hct 43.7 (42.0-52.0) % MCV 95.0 (80-100) fl MCH 31.3 (26-34) pg MCHC 33.0 (32-36) g/dl RDW 12.4 (11.5-14.5) % Plt Count 314 (150-375) k/mm3 MPV 8.7 (7.4-10.4) fl Immature Gran % (Auto) 0.4 (0-0.5) % Neut % (Auto) 66.1 (45.5-73.1) % Lymph % (Auto) 21.8 (18.3-44.2) % Adams % (Auto) 7.6 (2.6-8.5) % Eos % (Auto) 2.8 (0-4.4) % Baso % (Auto) 1.3 H (0.2-1.2) % Lymph # (Auto) 1.55 (0.9-3.2) K/mm3 Adams # (Auto) 0.5 (0.1-0.6) K/mm3 Eos # (Auto) 0.2 (0-0.3) K/mm3 Baso # (Auto) 0.1 (0.0-0.1) K/mm3 Abs Immat Gran (auto) 0.03 (0.00-0.031) K/mm3 Absolute Neuts (auto) 4.7 (1.3-6.7) K/mm3 Absolute Nucleated RBC 0.000 (0.0-0.012) K/mm3 Nucleated RBC % 0.0 (0.0-0.2) % PT 13.2 (11.1-14.7) Seconds INR 1.0 APTT 23.3 (22.3-36.8) Seconds Sodium 139 (137-145) mmol/L Potassium 4.4 (3.4-5.0) mmol/L Chloride 104 (98-107) mmol/L Carbon Dioxide 26 (22-30) mmol/L Anion Gap 9 (4-12) mmol/L BUN 13 (9-20) mg/dL Creatinine 0.97 (0.7-1.3) mg/dL Estim Creat Clear Calc 60 ml/min Estimated GFR > 60 (59 - ) Glucose 97 (65-110) mg/dL Calcium 9.3 (8.4-10.2) mg/dL Total Bilirubin 0.9 (0.2-1.3) mg/dL AST 30 (17-59) U/L ALT 29 (6-50) U/L Alkaline Phosphatase 68 (38-126) U/L Troponin I < 0.012 (0.000-0.034) ng/mL Total Protein 8.0 (6.3-8.2) g/dL Albumin 4.7 (3.5-5.1) g/dL Urine Color Yellow (Yellow) Urine Appearance Clear (Clear) Urine pH 5.5 (5.0-9.0) Ur Specific [place] 1.018 (1.001-1.035) Urine Protein 1+ H (Negative) mg/dL Urine Glucose (UA) Negative (Negative) mg/dL Urine Ketones Negative (Negative) mg/dL Ur Blood (Man) Negative (Negative) Urine Nitrate Negative (Negative) Urine Bilirubin Negative (Negative) Urine Urobilinogen 0.2 (<2.0) mg/dL Add Ur Microanalysis Reviewed Leukocyte Esterase Rfl Negative (Negative) ALIYA/UL Urine RBC 0-2 (0-2) /hpf Urine WBC 0-5 (0-3) /hpf Ur Squamous Epith Cells None seen (Few) /hpf Urine Bacteria None seen /hpf Urine Casts 0-2 Urine Mucus Present /lpf Imaging Data Radiologist's impression: ITS Impressions Chest X-Ray 02/12/25 10:11 IMPRESSION: No acute cardiopulmonary pathology. Head/Neck CTA 02/12/25 10:55 IMPRESSION: 1. Normal CTA head. 2. CTA of the neck.. Percent stenosis per NASCET criteria is 20% on the right and 10% on the left. ECG Data EKG #1: ECG completion date: 02/12/25 ECG completion time: 09:21 EKG Interpretation: normal rate (82), sinus rhythm, no ectopy, normal QRS, normal QT and NL axis Discharge Plan Discharge Clinical Impression: Brain TIA Patient Disposition: Still a Patient Condition: Stable Quality Stroke Scale Stroke Scale 1: 1a Level of consciousness: alert-0 1b Level of consciousness questions: answers both correctly-0 1c Level of consciousness commands: obeys both correctly-0 2 Best gaze: normal-0 3 Visual: no visual loss-0 4 Facial palsy: normal-0 5a Motor: left arm: no drift-0 5b Motor: right arm: no drift-0 6a Motor: left leg: no drift-0 6b Motor: right leg: no drift-0 7 Limb ataxia: absent-0 8 Sensory: normal-0 9 Best language: no aphasia-0 10 Dysarthria: normal-0 11 Extinction and inattention: no abnormality-0 Level:: 0
--- NOTE | 2025-02-12 13:31 | ADMGEN ---
This patient, Abraham Bruno, was admitted to Medical Room 257-01. Patient/family oriented to hospital policies and general routines including ID bracelet, bed and alarms, visiting hours, pain management, procedures, bathroom and other care routines, personal items, smoking policy, room service/diet, and visiting hours. Information on how to activate the Rapid Response Team has been discussed. Patient/Family are encouraged to report perceived risks to care and to ask questions if they do not understand what they are told or what they should do.
--- NOTE | 2025-02-12 13:39 | P.HP_ITS ---
H&P: HPI History of Present Illness Date/Time: 02/12/25 13:39 Chief Complaint: Confusion Narrative: This very pleasant 69-year-old male patient with history of multiple CVAs noted in 2006, 2007 and 2017 without any residual weakness or affect currently on Plavix and statin therapy, BPH, hypothyroidism, coronary artery disease, known carotid stenosis, asthma, hyperlipidemia, hypertension, GERD, diastolic dysf unction without heart failure and diverticulosis comes to the emergency room complaints of having acute confusion. Patient's is at the bedside and contributes to the given history of the patient. This morning patient was sitting on the end of his bed and reports that he did not feel right. When asked to elaborate he denies having any chest pain, shortness of breath, headache but reports he has been dizzy but has also been dizzy for the past couple of months. During this time of him not feeling right his states that he was unable to dress himself and became very frustrated walking back and forth from the bathroom to the closet trying to find a belt and trying to figure out what to do. He then stated to her What did we do yesterday? the patient had no memory of his normal everyday activities that he usually does such as going to the farm that he does on a daily basis and seen his granddaughter yesterday which brings have much choice. Patient's states this episode lasted for approximately 20 minutes. His reported last known well with 9:00 p.m. last night. Patient endorses that he has been having difficulty with chronic dizziness and has been taking meclizine and that there has been no change in the degree of dizziness he has had. Patient does have high blood pressure approximately 1 month ago his propanolol was changed to losartan and last week the dose of losartan was increased from 50 mg to 100 mg. Patient denies any acute symptoms such as chest pain, dyspnea, nausea, vomiting, diarrhea. He denies any recent falls, traumas, injuries or inciting events. He is a former smoker that quit in 1980, he admits to a couple of mixed drinks daily and he is not a user of drugs. In the emergency room a workup was performed with EKG showing normal sinus rhythm 82 beats per minute without any ectopy or ischemic changes. Normal QTC. Vital signs are reviewed and are normal. Patient had a CTA of his head and neck showing right carotid stenosis of 20% left carotid stenosis of 10% otherwise unremarkable CTA. Metabolic panel and CBC are without abnormalities and troponin is normal at less than 0.012. Urinalysis is negative for any acute findings. NIH score is 0. Neurology, Dr. Ya was consulted and agrees to see patient in the inpatient setting. He is being admitted to the current [facility] floor with these complaints and a normal physical exam at current time. Review of Systems Review of Systems: All systems reviewed & are unremarkable except as noted in HPI and below [facility] Past Medical History Medical History (Updated 02/12/25 @ 13:54 by BLAISE Lawson) TIA (transient ischemic attack) Altered mental status Benign prostatic hyperplasia with lower urinary tract symptoms Hypothyroid Coronary artery disease without angina pectoris CT scan 02/24 Bilateral carotid artery stenosis 09/2018 Asthma, moderate persistent Mixed hyperlipidemia Diverticula, colon Adenomatous colon polyp Diastolic dysfunction without heart failure Noted on echocardiogram May 2018 demonstrating grade 1 diastolic dysfunction EF 60-65% with small atheroma HTN (hypertension) GERD (gastroesophageal reflux disease) CVA (cerebral vascular accident) Right lacunar infarct 2006 Surgical History Surgical History History of nasal surgery H/O colonoscopy Screening colonoscopy 04/15/2020 with polypectomy x2 of ascending colon with recommended repeat colonoscopy in 5 years Family History Family History Father , in his late 80s Diabetes mellitus Hypertension Asthma Dementia Cerebrovascular accident Sibling Patient's sister is in good health Patient's brother is in good health Mother , mid July 2020 at age 88 Hyperlipidemia Cerebrovascular accident Other Carcinoma of colon Malignant neoplasm of prostate Other Colon polyp Social History Social History Social History: Primary care physician: Dr. Karel Alvarado Code status: Full code Smoking packs per day: 0.75 Smoking cigarettes per day: 15.0 Years smoked: 5 Smoking pack-years: 3.75 Smoking status: Former smoker Tobacco type: cigarettes Smoking end date: 10/12/80 Alcohol intake: current Drinks per week: 14 Alcohol use details: He drinks a couple of mixed drinks daily. Substance use: current Substance use type: does not use Do You Feel Safe in your Home?: Yes Lack of Transportation: No Lack of Food: Never True Current Housing: I Have Housing Concerned About Future Housing: No Difficulty Paying Gas/Electric Bills: No Difficulty Paying for Meds: No Currently Unemployed: No Education: Associate Degree Difficulty w/ Childcare or Family Care: No Living arrangements: with family Additional living arrangements comments: He lives with his of 48 years. They have 4 adult children under relatively healthy. They have 9 grand children. Occupation/Education: retired Additional occupation/education comments: He is retired from a [employer]. Gender identity (if verbalized by the patient): Male Sexual Orientation (if Verbalized by the Patient): Straight or Heterosexual Spiritual care concerns: No Agree to blood products: Yes Meds Home Medications and Allergies Home Medications ?Medication ?Instructions ?Recorded ?Confirmed ?Type aspirin 81 mg tablet,delayed 81 mg PO DAILY 04/18/20 02/12/25 History release albuterol 90 mcg/actuation aerosol See Rx Instructions .Route 08/11/20 02/12/25 History inhaler .COMPLEX SHORTNESS OF BREATH icosapent ethyl 1 gram capsule 2 g (2 x 1 gram) PO BID #400 caps 09/26/24 02/12/25 Rx (Vascepa) pantoprazole 20 mg tablet,delayed See Rx Instructions .Route 12/05/24 02/12/25 Rx release .COMPLEX #200 tabs rosuvastatin 20 mg tablet 20 mg PO DAILY #100 tabs 12/25/24 02/12/25 Rx Bifidobacterium infantis 4 mg 4 mg PO DAILY 02/06/25 02/06/25 History capsule (Align (B.infantis)) losartan 100 mg tablet 100 mg PO DAILY #90 tabs 02/06/25 02/12/25 Rx clopidogrel 75 mg tablet (Plavix) 75 mg PO DAILY #100 tabs 02/10/25 02/12/25 Rx fluticasone propionate 50 2 spray intranasal DAILY 02/12/25 02/12/25 History mcg/actuation nasal spray,suspension (Aller-Romero) Allergies Allergy/AdvReac Type Severity Reaction Status Date / Time No Known Allergies Allergy Verified 02/12/25 08:29 Vital Signs Vital Signs - 24 hr 02/12/25 08:57 02/12/25 09:16 02/12/25 09:18 Temperature 97.5 F L 97.9 F Pulse Rate 89 87 90 Respiratory Rate 16 16 Blood Pressure 150/81 H 143/78 H 143/78 H Pulse Oximetry 100 100 Oxygen Delivery Room Air 02/12/25 09:18 02/12/25 09:18 Temperature Pulse Rate 87 88 Respiratory Rate Blood Pressure 143/87 H 134/74 Pulse Oximetry Oxygen Delivery Exam Const: General: comfortable and no acute distress Other: at bedside. No acute distress, well kempt. HENMT: Face/Nose/Sinus: Normal nares present and no epistaxis Mouth: Yes moist mucous membranes Other: no facial droop Eyes: General: appearance normal, both eyes and all related structures Sclera: sclerae normal Pupils: Equal, round and reactive pupils present EOM: EOMs intact bilaterally Neck: Neck: supple and no JVD Thyroid: thyroid normal Carotids: no bruits Lymphatic: lymphadenopathy not noted Resp: Effort & Inspection: normal respiratory effort Auscultation: clear to auscultation bilaterally Cardio: Rate: regular rate Rhythm: regular rhythm Heart sounds: no gallops, no murmurs and no rubs GI: Inspection: non-distended GI Palp: Yes Soft to palpation and No Tenderness to palpation present (GI) Auscultation: normal bowel sounds Skin: General skin exam: normal color, no rashes or lesions noted and no erythema Lesions: no lesions noted Rashes: no rashes noted Wounds: no wounds Neuro: General: gait normal Speech: normal speech Motor exam (neuro): 5/5 motor strength present throughout and strength normal Sensory Exam: normal sensation Other: NIH for this provider is 0 Extrem: General: normal to inspection, no edema and no pedal edema Other: Freely and equally MAEW and without deficit. Psych: Mental Status: mental status grossly normal Affect: normal affect H&P: Results Labs Labs: Short CBC 02/12/25 Range/Units 09:08 WBC 7.1 (4.5-10.0) K/mm3 Hgb 14.4 (14.0-18.0) g/dL Hct 43.7 (42.0-52.0) % Plt Count 314 (150-375) k/mm3 [facility] 02/12/25 09:08 Sodium 139 Potassium 4.4 Chloride 104 Carbon Dioxide 26 BUN 13 Creatinine 0.97 Glucose 97 Calcium 9.3 Cardiac Enzymes 02/12/25 Range/Units 09:08 Troponin I < 0.012 (0.000-0.034) ng/mL Liver Function 02/12/25 Range/Units 09:08 Total Bilirubin 0.9 (0.2-1.3) mg/dL AST 30 (17-59) U/L ALT 29 (6-50) U/L Alkaline Phosphatase 68 (38-126) U/L Albumin 4.7 (3.5-5.1) g/dL Urine 02/12/25 Range/Units 09:18 Urine Color Yellow (Yellow) Urine Appearance Clear (Clear) Urine pH 5.5 (5.0-9.0) Ur Specific Power 1.018 (1.001-1.035) Urine Protein 1+ H (Negative) mg/dL Urine Glucose (UA) Negative (Negative) mg/dL Assessment and Plan Assessment and plan (1) Altered mental status: Code(s): R41.82 - Altered mental status, unspecified Status: Acute Assessment and Plan: * Etiology unknown. * No infectious symptoms or signs present objectively or subjectively * Suspect TIA as pt has strong hx of previous TIA/CVA * Currently at baseline without deficit. * NIH 0 * Neuro checks Q4 hrs. * Consult Dr. Ya from Neuro * Obtain ECHO * Obtain carotid dopplers * Obtain MRI w/wo contrast of brain. * CTA Head and neck performed in ER and was independently reviewed by myself * EKG without any ischemic changes. * Trend and monitor labs and VS. * Telemetry * Continue ASA/Plavix/Statin therapy * Check Lipid panel * Obtain 3 trending trops * Check A1C * Check Thyroid studies and coags. (2) Dizziness: Code(s): R42 - Dizziness and giddiness Status: Acute Assessment and Plan: * Acute on chronic, present for a couple of months * Fall precautions. * See all interventions for #1. (3) TIA (transient ischemic attack): Code(s): G45.9 - Transient cerebral ischemic attack, unspecified Status: Chronic Assessment and Plan: * Pt with multiple prior TIA/CVA. * Continue ASA/Plavix/Statin therapy * Awaiting workup as in #1. (4) Asthma, moderate persistent: Code(s): J45.40 - Moderate persistent asthma, uncomplicated Status: Chronic Assessment and Plan: * Continue prn albuterol as needed. (5) GERD (gastroesophageal reflux disease): Code(s): K21.9 - Gastro-esophageal reflux disease without esophagitis Status: Chronic Assessment and Plan: * Continue PPI Therapy (6) Mixed hyperlipidemia: Code(s): E78.2 - Mixed hyperlipidemia Status: Chronic Assessment and Plan: * Continue Statin therapy * Continue Vascepa * Check lipid panel in AM (7) Bilateral carotid artery stenosis: Code(s): I65.23 - Occlusion and stenosis of bilateral carotid arteries Status: Chronic Assessment and Plan: * Known stenosis present. * CTA performed in ER shows 20% occlusion on the right and 10% occlusion on the left. * Continue ASA/Plavix. * Awaiting neuro consult. (8) HTN (hypertension): Code(s): I10 - Essential (primary) hypertension Status: Chronic Assessment and Plan: * Well controlled. * Continue current medications of Losartan 100 mg daily Quality VTE Prophylaxis VTE prophylaxis: pharmacologic ordered Hospitalist MIPS Advance Care Plan I have confirmed that the patient's Advanced Care Plan is present, code status is documented, or surrogate decision maker is listed in patient medical record.: Yes Medication Reconciliation I have utilized all available resources to obtain, update and review the patients current medications (includes all prescriptions, OTC, herbals, cannabis, and nutritional supplements).: Yes
--- NOTE | 2025-02-12 14:25 | PC.NURSE ---
To MRI per wheelchair.
[2025-02-12 14:34] LABS: Cholesterol 185 mg/dL (0-200); HDL Direct 73 mg/dL; Triglycerides 142 mg/dL (<150)
[2025-02-12 14:44] LABS: LDL Cholesterol Direct 72 mg/dL; Troponin I < 0.012 ng/mL (0.000-0.034)
[2025-02-12 14:51] LABS: Hemoglobin A1C 5.2 % (<5.7)
--- NOTE | 2025-02-12 14:54 | PC.NURSE ---
Returned to room from MRI per wheelchair.
[2025-02-12] MEDS: OMEGA 3 POLYUNSAT FATTY ACIDS 1 GM CAP 2 GM PO (15:16)
[2025-02-12] MEDS: ASPIRIN 81 MG ENTERIC TABLET PO (15:16)
[2025-02-12] MEDS: LOSARTAN POTASSIUM 100 MG TABLET PO (15:17)
[2025-02-12] MEDS: ROSUVASTATIN 20 MG TABLET PO (15:17)
[2025-02-12] MEDS: PANTOPRAZOLE 40 MG TABLET PO (15:17)
[2025-02-12] MEDS: CLOPIDOGREL BISULFATE 75 MG TABLET PO (15:17)
[2025-02-12 17:34] LABS: Troponin I 0.015 ng/mL (0.000-0.034)
[2025-02-13] VITALS (10 sets, daily range): BP systolic 104–127; BP diastolic 57–71; PULSE 73–99; RESP 16–20; TEMP 36.2–36.6; O2SAT 94–100
--- NOTE | 2025-02-13 | ECHO_ITS ---
Patient Info Name: Abraham Bruno Age: 69 years : 1955 Gender: Male Ht: 68 in Wt: 174 lbs BSA: 1.96 m2 HR: 81 bpm BP: 104 / 64 mmHg Technical Quality: Good Exam Date: 02/13/2025 10:27 AM Exam Location: Echo Lab Patient Status: Outpatient Admit Date: 02/12/2025 Staff Ordering Physician: Estela Finn Gas Manager: Rashida Abrams RDCS Attending Provider: Dion Edgar PA-C Referring Physician: Huma VALADEZ; Exam Type: CA echo doppler w bubble study Study Info Indications - AMS/TIA Complete two-dimensional, color flow and Doppler transthoracic echocardiogram is performed with agitated saline. Contrast/Agitated Saline Contrast/Ag. Saline: Agitated Saline Amount: 12.00 ml IV Access Condition: patent with no signs of infiltration Summary 1. Left ventricular chamber dimension is normal. 2. Left ventricular systolic function is normal, estimated at 60-65%. 3. The left ventricular diastolic function is grade I diastolic dysfunction. 4. E/e' 8 is minimally elevated. 5. There is mild aortic valve sclerosis. 6. The mitral valve has mildly calcified annulus. 7. There is trace mitral valve regurgitation. 8. There is trace tricuspid valve regurgitation. 9. No pulmonary hypertension, estimated pulmonary arterial systolic pressure is 24 mmHg. Left Ventricle E/e' 8 is minimally elevated. Left ventricular chamber dimension is normal. Left ventricular systolic function is normal, estimated at 60-65%. The left ventricular diastolic function is grade I diastolic dysfunction. Right Ventricle Right ventricular chamber dimension is normal. Right ventricular systolic function is normal. Left Atria Left atrial chamber dimension is normal. Right Atria Right atrial chamber dimension is normal. Atrial Septum Agitated saline injection with and without valsalva maneuver opacified right side cardiac chambers without shunt to left side cardiac chambers. Intact interatrial septum visualized by 2D and agitated saline imaging. Aortic Valve The aortic valve is trileaflet. There is mild aortic valve sclerosis. There is no aortic valve stenosis. There is no aortic valve regurgitation. Pulmonic Valve There is no pulmonic regurgitation. Mitral Valve The mitral valve has mildly calcified annulus. There is no mitral valve stenosis. There is trace mitral valve regurgitation. Tricuspid Valve There is trace tricuspid valve regurgitation. No pulmonary hypertension, estimated pulmonary arterial systolic pressure is 24 mmHg. Pericardium/Pleural There is no pericardial effusion. Inferior Vena Cava Normal inferior vena cava with >50% collapse upon inspiration consistent with normal right atrial pressure, 5 mmHg. Aorta The aortic root size at the sinus of Valsalva is normal. Left Ventricular Outflow Tract Name Value Normal LVOT 2D LVOT Diameter 1.8 cm LVOT Doppler LVOT Peak Gradient 5 mmHg LVOT Mean Gradient 3 mmHg LVOT VTI 23 cm LVOT VTI/AV VTI Ratio 0.9 LVOT Stroke Volume 62 ml LVOT CO 13.1 l/min LVOT CI 6.7 l/min/m2 Pulmonic Valve Name Value Normal PV Doppler PV Peak Gradient 4 mmHg Mitral Valve Name Value Normal MV Doppler MV Decel Meigs 379 cm/s2 MV PHT 59 ms MV Area (PHT) 3.8 cm2 4.0-5.0 MV Diastolic Function MV E Peak Velocity 77 cm/s MV A Peak Velocity 79 cm/s MV E/A 1.0 MV Decel Time 202 ms MV Annular TDI MV E/e' (Septal) 10.5 <=8.0 MV E/e' (Lateral) 7.7 <=8.0 MV E/e' (Average) 9.1 Tricuspid Valve Name Value Normal TV Regurgitation Doppler TR Peak Velocity 220 cm/s TR Peak Gradient 19 mmHg Estimated PAP/RSVP RA Pressure 5 mmHg <=5 PA Systolic Pressure 24 mmHg <36 RV Systolic Pressure 24 mmHg <36 Aorta Name Value Normal Ascending Aorta Ao Root Diameter (MM) 3.5 cm Ao Root Diam Index (MM) 1.8 cm/m2 Aortic Valve Name Value Normal AV Doppler AV Peak Velocity 138 cm/s AV Peak Gradient 8 mmHg AV Mean Gradient 5 mmHg AV VTI 26 cm AV Area (Cont Eq VTI) 2.4 cm2 >=3.0 AV Area (Cont Eq Romero) 2.1 cm2 AV Regurgitation 2D LVOT Area 2.7 cm2 Ventricles Name Value Normal LV Dimensions 2D/MM IVS Diastolic Thickness (2D) 1.1 cm 0.6-1.0 LVID Diastole (2D) 3.8 cm 4.2-5.8 LVIW Diastolic Thickness (2D) 1.1 cm 0.6-1.0 LVID Systole (2D) 2.5 cm 2.5-4.0 LVOT Diameter 1.8 cm LV Mass (2D Cubed) 129.56 g 88.00-224.00 LV Mass Index (2D Cubed) 66 g/m2 49-115 Relative Wall Thickness (2D) 0.56 LV Fractional Shortening/Ejection Fraction 2D/MM LV Fractional Shortening (2D) 36 % 25-43 LV EF (2D Teicholz) 66 % 52-72 LV Diastolic Volume (4C MOD) 86 ml LV EF (4C MOD) 68 % LV Diastolic Volume (2C MOD) 56 ml LV EF (2C MOD) 61 % LV Diastolic Volume (BP MOD) 69 ml 62-150 LV Diastolic Volume Index (BP MOD) 35 ml/m2 34-74 LV Systolic Volume (BP MOD) 25 ml 21-61 LV Systolic Volume Index (BP MOD) 13 ml/m2 11-31 LV EF (BP MOD) 64 % 52-72 LV Diastolic Length (4C) 7.0 cm LV Systolic Length (4C) 5.6 cm LV Stroke Volume (4C MOD) 58 ml RV Dimensions 2D/MM RVID Diastole (2D) 3.8 cm 2.5-3.5 Atria Name Value Normal LA Dimensions LA Dimension (MM) 3.3 cm 3.0-4.1 LA Volume (4C A-L) 26 ml LA Volume (BP A-L) 29 ml RA Dimensions RA Area (4C) 12.2 cm2 <=18.0 Report Signatures
[2025-02-13 05:03] LABS: Basophils Absolute Auto 0.1 K/mm3 (0.0-0.1); Basophils Percent Auto 0.8 % (0.2-1.2); Eosinophils Absolute Auto 0.4 K/mm3 (0-0.3); Eosinophils Percent Auto 4.3 % (0-4.4); Hematocrit 41.9 % (42.0-52.0); Hemoglobin 14.1 g/dL (14.0-18.0); Immature Granulocyte Absolute 0.03 K/mm3 (0.00-0.031); Immature Granulocyte Percent A 0.3 % (0-0.5); Lymphocytes Absolute Auto 2.26 K/mm3 (0.9-3.2); Lymphocytes Percent Auto 26.2 % (18.3-44.2); Mean Corpuscular HGB Conc 33.7 g/dl (32-36); Mean Corpuscular Volume 95.2 fl (80-100); Mean Platelet Volume 8.7 fl (7.4-10.4); Monocytes Absolute Auto 0.7 K/mm3 (0.1-0.6); Monocytes Percent Auto 8.4 % (2.6-8.5); Neutrophils Absolute Auto 5.2 K/mm3 (1.3-6.7); Platelet Count Result 300 k/mm3 (150-375); Red Cell Distribution Width 12.2 % (11.5-14.5); White Blood Count 8.6 K/mm3 (4.5-10.0)
[2025-02-13 05:21] LABS: Alanine Aminotransferase 28 U/L (6-50); Albumin Level 4.3 g/dL (3.5-5.1); Alkaline Phosphatase 62 U/L (38-126); Anion Gap 9 mmol/L (4-12); Aspartate Amino Transferase 28 U/L (17-59); Bilirubin,Total 1.4 mg/dL (0.2-1.3); Blood Urea Nitrogen 15 mg/dL (9-20); Carbon Dioxide 26 mmol/L (22-30); Chloride 101 mmol/L (98-107); Estimated CRCL calculation 58 ml/min; Estimated Glomerular Filt Rate > 60; Glucose 88 mg/dL (65-110); Magnesium 2.1 mg/dL (1.6-2.3); Sodium 136 mmol/L (137-145)
[2025-02-13 06:13] LABS: Partial Thromboplastin Time 27.3 Seconds (22.3-36.8); Prothrombin Time 13.3 Seconds (11.1-14.7)
[2025-02-13 06:55] LABS: Free T4 Free Thyroxine Reflex 1.03 ng/dL (0.78-2.19)
--- NOTE | 2025-02-13 07:01 | P.PNIM_ITS ---
Progress Note: A&P Assessment and Plan (1) Altered mental status: Code(s): R41.82 - Altered mental status, unspecified Status: Acute Assessment and Plan: * Etiology unknown. * No infectious symptoms or signs present objectively or subjectively * Suspect TIA as pt has strong hx of previous TIA/CVA * Currently at baseline without deficit. * NIH 0 * Neuro checks Q4 hrs * MRI w/wo contrast of brain: No acute ischemic infarct. * CTA Head and neck performed in ER and was independently reviewed by myself * EKG without any ischemic changes. * Telemetry * Continue ASA/Plavix/Statin therapy * Check Lipid panel * Trop (-) * A1C 5.2% * TSH 6.96, Free T4 1.03, Total T3 1.31 * Pending Neuro consult * Pending ECHO (2) Dizziness: Code(s): R42 - Dizziness and giddiness Status: Inactive Assessment and Plan: * Acute on chronic, present for a couple of months * Fall precautions. * See all interventions for #1. (3) TIA (transient ischemic attack): Code(s): G45.9 - Transient cerebral ischemic attack, unspecified Status: Chronic Assessment and Plan: * Pt with multiple prior TIA/CVA. * Continue ASA/Plavix/Statin therapy * Awaiting workup as in #1. (4) Asthma, moderate persistent: Code(s): J45.40 - Moderate persistent asthma, uncomplicated Status: Chronic Assessment and Plan: * Continue prn albuterol as needed. (5) GERD (gastroesophageal reflux disease): Code(s): K21.9 - Gastro-esophageal reflux disease without esophagitis Status: Chronic Assessment and Plan: * Continue PPI Therapy (6) Mixed hyperlipidemia: Code(s): E78.2 - Mixed hyperlipidemia Status: Chronic Assessment and Plan: * Continue Statin therapy * Continue Vascepa * Check lipid panel in AM (7) Bilateral carotid artery stenosis: Code(s): I65.23 - Occlusion and stenosis of bilateral carotid arteries Status: Chronic Assessment and Plan: * Known stenosis present. * CTA performed in ER shows 20% occlusion on the right and 10% occlusion on the left. * Continue ASA/Plavix. * Awaiting neuro consult. (8) HTN (hypertension): Code(s): I10 - Essential (primary) hypertension Status: Chronic Assessment and Plan: * Well controlled. * Continue current medications of Losartan 100 mg daily Time Spent With Patient Time: 15- Subjective Date/time seen: 02/13/25 07:01 Interval history: 69-year-old male patient with history of multiple CVAs noted in 2006, 2007 and 2017 without any residual weakness or affect currently on Plavix and statin therapy, BPH, hypothyroidism, CAD, known carotid stenosis, asthma, hyperlipidemia, HTN, GERD, diastolic dysfunction without heart failure and diverticulosis came to the ER w/ complaints of acute confusion. 02/13/2025 Patient sitting comfortably in bed at time of exam. Denies any complaints at this time. Has been ambulatory without difficulty. Pending Neurology consult. Also pending echocardiogram. Otherwise no complaints or changes. Review of Systems Review of Systems: All systems reviewed & are unremarkable except as noted in HPI and below Exam Const: General: comfortable and no acute distress Other: at bedside. No acute distress, well kempt. HENMT: Face/Nose/Sinus: Normal nares present and no epistaxis Mouth: Yes moist mucous membranes Other: no facial droop Eyes: General: appearance normal, both eyes and all related structures Sclera: sclerae normal Pupils: Equal, round and reactive pupils present EOM: EOMs intact bilaterally Neck: Neck: supple and no JVD Thyroid: thyroid normal Carotids: no bruits Lymphatic: lymphadenopathy not noted Resp: Effort & Inspection: normal respiratory effort Auscultation: clear to auscultation bilaterally Cardio: Rate: regular rate Rhythm: regular rhythm Heart sounds: no gallops, no murmurs and no rubs GI: Inspection: non-distended Auscultation: normal bowel sounds Skin: General skin exam: normal color, no rashes or lesions noted, no erythema, No lesion and No rashes Lesions: no lesions noted Rashes: no rashes noted Wounds: no wounds Neuro: General: gait normal Cranial nerves: Yes Equal, round and reactive pupils present Speech: normal speech Motor exam (neuro): 5/5 motor strength present throughout and strength normal Sensory Exam: normal sensation Other: NIH for this provider is 0 Extrem: General: normal to inspection, no edema and no pedal edema Other: Freely and equally MAEW and without deficit. Psych: Mental Status: mental status grossly normal Affect: normal affect Objective Data Vital Signs Vital Signs: Vital Signs - 24 hr 02/12/25 08:57 02/12/25 09:16 02/12/25 09:18 Temperature 97.5 F L 97.9 F Pulse Rate 89 87 90 Respiratory Rate 16 16 Blood Pressure 150/81 H 143/78 H 143/78 H Pulse Oximetry 100 100 Oxygen Delivery Room Air 02/12/25 09:18 02/12/25 09:18 02/12/25 13:30 Temperature Pulse Rate 87 88 78 Respiratory Rate Blood Pressure 143/87 H 134/74 Pulse Oximetry Oxygen Delivery 02/12/25 13:44 02/12/25 16:00 02/12/25 20:00 Temperature 97.3 F L Pulse Rate 77 84 Respiratory Rate 18 Blood Pressure 145/87 H Pulse Oximetry 100 Oxygen Delivery Room Air 02/12/25 20:00 02/12/25 22:00 02/13/25 00:00 Temperature 97.6 F Pulse Rate 98 86 78 Respiratory Rate 18 Blood Pressure 124/68 Pulse Oximetry 100 Oxygen Delivery 02/13/25 04:00 02/13/25 06:00 Temperature 97.8 F Pulse Rate 75 75 Respiratory Rate 18 Blood Pressure 104/64 Pulse Oximetry 100 Oxygen Delivery Meds/Results Medications: Active Medications Generic Name Dose Route Start Last Admin Trade Name Freq PRN Reason Stop Dose Admin Acetaminophen 650 mg 02/12/25 12:25 Acetaminophen 325 Mg Tablet PO Q4H PRN Mild Pain (1-3) or Fever Hydrocodone Bitart/Acetaminophen 1 tab 02/12/25 12:25 Hydrocodone/Acetaminophen (*Crx) 5-325 Mg Tablet PO Q4H PRN Pain Rated 4-6 Albuterol 2 puff 02/12/25 16:00 Albuterol Sulfate (*Sp) Aerosol 1 Puff INHALATION Q4H PRN Shortness Of Breath Or Wheezing Aspirin 81 mg 02/12/25 13:55 02/12/25 15:16 Aspirin 81 Mg Enteric Tablet PO 81 mg DAILY KERRI Administration Clopidogrel Bisulfate 75 mg 02/12/25 13:55 02/12/25 15:17 Clopidogrel Bisulfate 75 Mg Tablet PO 75 mg DAILY KERRI Administration Enoxaparin Sodium 40 mg 02/13/25 09:00 Enoxaparin 40 Mg/0.4 Ml Syringe SUB-Q DAILY KERRI Fish Oil 2 gm 02/12/25 17:00 02/12/25 15:16 [place] 3 Polyunsat Fatty Acids 1 Gm Cap PO 2 gm BID KERRI Administration Fluticasone Propionate 2 spray 02/13/25 09:00 Fluticasone Propionate 0.05% Na Spr 16 Gm Btl (*Bkc) NASAL DAILY KERRI Lactobacillus Acidophilus 1 tablet 02/13/25 09:00 Acidophilus/Bulgaricus Chewable Tablet BY MOUTH DAILY KERRI Losartan Potassium 100 mg 02/12/25 13:55 02/12/25 15:17 Losartan Potassium 100 Mg Tablet PO 100 mg DAILY KERRI Administration Ondansetron HCl 4 mg 02/12/25 12:25 Ondansetron Inj 4 Mg/2 Ml Vial IV PUSH Q4H PRN Nausea Pantoprazole Sodium 40 mg 02/12/25 14:00 02/12/25 15:17 Pantoprazole 40 Mg Tablet PO 40 mg QAM KERRI Administration Perflutren Lipid Microsphere 0 ml 02/12/25 13:56 Perflutren Lipid Microspheres 1.5 Ml Vial Diluted To 10 Ml Total Volume IV PUSH 02/15/25 13:56 ONCE PRN adequate visualization Protocol Rosuvastatin Calcium 20 mg 02/12/25 13:55 02/12/25 15:17 Rosuvastatin 20 Mg Tablet PO 20 mg DAILY KERRI Administration Radiology Results: ITS Impressions Chest X-Ray 02/12/25 10:11 IMPRESSION: No acute cardiopulmonary pathology. Head/Neck CTA 02/12/25 10:55 IMPRESSION: 1. Normal CTA head. 2. CTA of the neck.. Percent stenosis per NASCET criteria is 20% on the right and 10% on the left. Brain MRI 02/12/25 16:21 IMPRESSION: No acute ischemic infarct. Pansinus mucoperiosteal disease. Labs Labs: Laboratory Results - last 24 hr 02/12/25 02/12/25 02/12/25 09:08 09:18 14:11 WBC 7.1 RBC 4.60 Hgb 14.4 Hct 43.7 MCV 95.0 MCH 31.3 MCHC 33.0 RDW 12.4 Plt Count 314 MPV 8.7 Immature Gran % (Auto) 0.4 Neut % (Auto) 66.1 Lymph % (Auto) 21.8 [place] % (Auto) 7.6 Eos % (Auto) 2.8 Baso % (Auto) 1.3 H Lymph # (Auto) 1.55 [place] # (Auto) 0.5 Eos # (Auto) 0.2 Baso # (Auto) 0.1 Abs Immat Gran (auto) 0.03 Absolute Neuts (auto) 4.7 Absolute Nucleated RBC 0.000 Nucleated RBC % 0.0 PT 13.2 INR 1.0 APTT 23.3 Sodium 139 Potassium 4.4 Chloride 104 Carbon Dioxide 26 Anion Gap 9 BUN 13 Creatinine 0.97 Estim Creat Clear Calc 60 Estimated GFR > 60 Glucose 97 Hemoglobin A1c 5.2 Calcium 9.3 Magnesium Total Bilirubin 0.9 AST 30 ALT 29 Alkaline Phosphatase 68 Troponin I < 0.012 < 0.012 Total Protein 8.0 Albumin 4.7 Triglycerides 142 Cholesterol 185 LDL Cholesterol Direct 72 HDL Direct 73 TSH (Reflex) Free T4 Urine Color Yellow Urine Appearance Clear Urine pH 5.5 Ur Specific [place] 1.018 Urine Protein 1+ H Urine Glucose (UA) Negative Urine Ketones Negative Ur Blood (Man) Negative Urine Nitrate Negative Urine Bilirubin Negative Urine Urobilinogen 0.2 Add Ur Microanalysis Reviewed Leukocyte Esterase Rfl Negative Urine RBC 0-2 Urine WBC 0-5 Ur Squamous Epith Cells None seen Urine Bacteria None seen Urine Casts 0-2 Urine Mucus Present 02/12/25 02/13/25 17:06 04:29 WBC 8.6 RBC 4.40 L Hgb 14.1 Hct 41.9 L MCV 95.2 MCH 32.0 MCHC 33.7 RDW 12.2 Plt Count 300 MPV 8.7 Immature Gran % (Auto) 0.3 Neut % (Auto) 60.0 Lymph % (Auto) 26.2 [place] % (Auto) 8.4 Eos % (Auto) 4.3 Baso % (Auto) 0.8 Lymph # (Auto) 2.26 [place] # (Auto) 0.7 H Eos # (Auto) 0.4 H Baso # (Auto) 0.1 Abs Immat Gran (auto) 0.03 Absolute Neuts (auto) 5.2 Absolute Nucleated RBC 0.000 Nucleated RBC % 0.0 PT 13.3 INR 1.0 APTT 27.3 Sodium 136 L Potassium 4.0 Chloride 101 Carbon Dioxide 26 Anion Gap 9 BUN 15 Creatinine 1.02 Estim Creat Clear Calc 58 Estimated GFR > 60 Glucose 88 Hemoglobin A1c Calcium 9.0 Magnesium 2.1 Total Bilirubin 1.4 H AST 28 ALT 28 Alkaline Phosphatase 62 Troponin I 0.015 D Total Protein 7.0 Albumin 4.3 Triglycerides Cholesterol LDL Cholesterol Direct HDL Direct TSH (Reflex) 6.960 H Free T4 1.03 Urine Color Urine Appearance Urine pH Ur Specific [place] Urine Protein Urine Glucose (UA) Urine Ketones Ur Blood (Man) Urine Nitrate Urine Bilirubin Urine Urobilinogen Add Ur Microanalysis Leukocyte Esterase Rfl Urine RBC Urine WBC Ur Squamous Epith Cells Urine Bacteria Urine Casts Urine Mucus Quality VTE Prophylaxis VTE prophylaxis: pharmacologic ordered
[2025-02-13 07:41] LABS: Total Triiodothyronine (T3) 1.31 NG/ML (0.97-1.69)
[2025-02-13] MEDS: CLOPIDOGREL BISULFATE 75 MG TABLET PO (08:58)
[2025-02-13] MEDS: OMEGA 3 POLYUNSAT FATTY ACIDS 1 GM CAP 2 GM PO ×2 (08:58→17:15)
[2025-02-13] MEDS: FLUTICASONE PROPIONATE 0.05% NA SPR 16 GM BTL (*BKC) 2 SPRAY NASAL (08:58)
[2025-02-13] MEDS: ASPIRIN 81 MG ENTERIC TABLET PO (08:58)
[2025-02-13] MEDS: ACIDOPHILUS/BULGARICUS CHEWABLE TABLET 1 TABLET BY MOUTH (08:58)
[2025-02-13] MEDS: ENOXAPARIN 40 MG/0.4 ML SYRINGE SUB-Q (08:58)
[2025-02-13] MEDS: LOSARTAN POTASSIUM 100 MG TABLET PO (08:58)
[2025-02-13] MEDS: ROSUVASTATIN 20 MG TABLET PO (08:58)
[2025-02-13] MEDS: PANTOPRAZOLE 40 MG TABLET PO (08:58)
--- NOTE | 2025-02-13 10:55 | P.CONNEU_ITS ---
Assessment and Plan Assessment and plan (1) Brain TIA: Code(s): G45.9 - Transient cerebral ischemic attack, unspecified Status: Acute Assessment and Plan: The patient presented with symptoms of amnesia the events that occurred the on the day before and as described by his he was not acting normally but he did not have any weakness in upper lower limbs nor he had any feet speech disturbance with previous history of stroke on 3 occasions the differential diagnosis of his presentation includes cerebrovascular disease. Remote possibility of partial complex seizure was considered but appears less likely. EEG is recommended. Echocardiogram is also pending his LDL yesterday was 72. We should aim to bring it down to under 65. You may consider increasing the dose of rosuvastatin. I noted the patient already on aspirin and Plavix which should be continued. (2) Benign prostatic hyperplasia with lower urinary tract symptoms: Code(s): N40.1 - Benign prostatic hyperplasia with lower urinary tract symptoms Status: Acute Plan As discussed above the patient may continue the dual antiplatelets and statin. He may consider increasing the dose of statin. An EEG is also recommended. Echocardiogram is pending. The results of these may be followed up as an outpatient Consult date: 02/13/25 HPI: Abraham Bruno is a 69 year old male with history of multiple strokes unspecified in 2006, 2008 and 2018 without any residual deficit and currently on Plavix and statin therapy presented to the hospital with an episode described by his that he woke up on Thursday morning getting ready for the quaker and appeared confused. He could not remember what happened on Thursday although he was able to talk and ambulate. There was no other abnormal behavior. He was also not able to grasp what was going on at that time. Subsequently it improved. He was brought to the hospital and underwent several investigations. CT scan of the brain did not show any acute stroke. CT angiogram of the head and neck shows no significant large vessel occlusion. There was a 20% narrowing in the right internal carotid artery and 10% the left internal carotid artery. Patient also has episodes of dizziness however he has had these on and off in the past. Subsequently he had an MRI of the brain yesterday which shows no acute findings some chronic mild chronic vascular changes and to sinus disease were noted. Review of Systems 2 Review of Systems: All systems reviewed & are unremarkable except as noted in HPI and below [facility] Past Medical History Medical History TIA (transient ischemic attack) Altered mental status Benign prostatic hyperplasia with lower urinary tract symptoms Hypothyroid Coronary artery disease without angina pectoris CT scan 02/24 Bilateral carotid artery stenosis 09/2018 Asthma, moderate persistent Mixed hyperlipidemia Diverticula, colon Adenomatous colon polyp Diastolic dysfunction without heart failure Noted on echocardiogram May 2018 demonstrating grade 1 diastolic dysfunction EF 60-65% with small atheroma HTN (hypertension) GERD (gastroesophageal reflux disease) CVA (cerebral vascular accident) Right lacunar infarct 2006 Surgical History Surgical History History of nasal surgery H/O colonoscopy Screening colonoscopy 04/15/2020 with polypectomy x2 of ascending colon with recommended repeat colonoscopy in 5 years Family History Family History Father , in his late 80s Diabetes mellitus Hypertension Asthma Dementia Cerebrovascular accident Sibling Patient's sister is in good health Patient's brother is in good health Mother , mid July 2020 at age 88 Hyperlipidemia Cerebrovascular accident Other Carcinoma of colon Malignant neoplasm of prostate Other Colon polyp Social History Social History Social History: Primary care physician: Dr. Karel Alvarado Code status: Full code Smoking packs per day: 0.75 Smoking cigarettes per day: 15.0 Years smoked: 5 Smoking pack-years: 3.75 Smoking status: Former smoker Tobacco type: cigarettes Smoking end date: 10/12/80 Alcohol intake: current Drinks per week: 14 Alcohol use details: He drinks a couple of mixed drinks daily. Substance use: current Substance use type: does not use Do You Feel Safe in your Home?: Yes Lack of Transportation: No Lack of Food: Never True Current Housing: I Have Housing Concerned About Future Housing: No Difficulty Paying Gas/Electric Bills: No Difficulty Paying for Meds: No Currently Unemployed: No Education: Associate Degree Difficulty w/ Childcare or Family Care: No Living arrangements: with family Additional living arrangements comments: He lives with his of 48 years. They have 4 adult children under relatively healthy. They have 9 grand children. Occupation/Education: retired Additional occupation/education comments: He is retired from a [employer]. Gender identity (if verbalized by the patient): Male Sexual Orientation (if Verbalized by the Patient): Straight or Heterosexual Spiritual care concerns: No Agree to blood products: Yes Meds Home Medications and Allergies Home Medications ?Medication ?Instructions ?Recorded ?Confirmed ?Type aspirin 81 mg tablet,delayed 81 mg PO DAILY 04/18/20 02/12/25 History release albuterol 90 mcg/actuation aerosol See Rx Instructions .Route 08/11/20 02/12/25 History inhaler .COMPLEX SHORTNESS OF BREATH icosapent ethyl 1 gram capsule 2 g (2 x 1 gram) PO BID #400 caps 09/26/24 02/12/25 Rx (Vascepa) pantoprazole 20 mg tablet,delayed See Rx Instructions .Route 12/05/24 02/12/25 Rx release .COMPLEX #200 tabs rosuvastatin 20 mg tablet 20 mg PO DAILY #100 tabs 12/25/24 02/12/25 Rx Bifidobacterium infantis 4 mg 4 mg PO DAILY 02/06/25 02/12/25 History capsule (Align (B.infantis)) losartan 100 mg tablet 100 mg PO DAILY #90 tabs 02/06/25 02/12/25 Rx clopidogrel 75 mg tablet (Plavix) 75 mg PO DAILY #100 tabs 02/10/25 02/12/25 Rx fluticasone propionate 50 2 spray intranasal DAILY 02/12/25 02/12/25 History mcg/actuation nasal spray,suspension (Aller-Romero) Allergies Allergy/AdvReac Type Severity Reaction Status Date / Time No Known Allergies Allergy Verified 02/12/25 08:29 Vital Signs Vital Signs - 24 hr 02/12/25 13:30 02/12/25 13:44 02/12/25 16:00 Temperature 97.3 F L Pulse Rate 78 77 84 Respiratory Rate 18 Blood Pressure 145/87 H Pulse Oximetry 100 Oxygen Delivery 02/12/25 20:00 02/12/25 20:00 02/12/25 22:00 Temperature 97.6 F Pulse Rate 98 86 Respiratory Rate 18 Blood Pressure 124/68 Pulse Oximetry 100 Oxygen Delivery Room Air 02/13/25 00:00 02/13/25 04:00 02/13/25 06:00 Temperature 97.8 F Pulse Rate 78 75 75 Respiratory Rate 18 Blood Pressure 104/64 Pulse Oximetry 100 Oxygen Delivery 02/13/25 09:52 Temperature Pulse Rate Respiratory Rate Blood Pressure Pulse Oximetry 96 Oxygen Delivery Room Air Exam 2 Const: General: cooperative, well developed and alert O rientation/consciousness: patient oriented x3 HENMT: Head: atraumatic Mouth: Yes oropharynx normal Eyes: Alignment and Position: position normal Pupils: Equal, round and reactive pupils present EOM: EOMs intact bilaterally Neck: Neck: supple Other: No carotid bruit Resp: Effort & Inspection: normal respiratory effort Cardio: Rate: regular rate Rhythm: regular rhythm Skin: General skin exam: normal color Neuro: General: patient oriented x3 Cranial nerves: Yes CN's II-XII intact bilaterally, Yes facial sensation intact/muscles of mastication intact, Yes Equal, round and reactive pupils present, Yes facial symmetry and Yes Midline tongue present Cognition (Neuro): normal cognition Speech: normal speech Gait exam (Neuro): Normal gait present Motor exam (neuro): 5/5 motor strength present throughout Sensory Exam: normal sensation Coordination: f [id number] test normal and Normal rapid alternating movements of the distal upper extremity present (Neuro) Psych: Mental Status: mental status grossly normal Affect: normal affect Results Labs 02/13/25 04:29 02/13/25 04:29 Labs: Short CBC 02/13/25 Range/Units 04:29 WBC 8.6 (4.5-10.0) K/mm3 Hgb 14.1 (14.0-18.0) g/dL Hct 41.9 L (42.0-52.0) % Plt Count 300 (150-375) k/mm3 BMP 02/13/25 04:29 Sodium 136 L Potassium 4.0 Chloride 101 Carbon Dioxide 26 BUN 15 Creatinine 1.02 Glucose 88 Calcium 9.0 Cardiac Enzymes 02/12/25 02/12/25 Range/Units 14:11 17:06 Troponin I < 0.012 0.015 D (0.000-0.034) ng/mL Liver Function 02/13/25 Range/Units 04:29 Total Bilirubin 1.4 H (0.2-1.3) mg/dL AST 28 (17-59) U/L ALT 28 (6-50) U/L Alkaline Phosphatase 62 (38-126) U/L Albumin 4.3 (3.5-5.1) g/dL Imaging Attestation: I personally reviewed and interpreted this imaging study as follows: ( ) My impression: MRI of the brain was reviewed which shows mild chronic ischemic changes however no acute findings or new changes were seen. There was some evidence for sinus disease . In addition CT scan of the brain and CT angiogram of the head and neck were also reviewed. No significant major vessel occlusion noted on the CT angiogram of the head and neck. Radiologist's impression: same.
[2025-02-13 13:05] LABS: Folic Acid 4.7 ng/mL (2.76->20)
[2025-02-13] MEDS: ACETAMINOPHEN 325 MG TABLET 650 MG PO (19:25)
[2025-02-14] VITALS: PULSE 77
[2025-02-14 04:00] VITALS: PULSE 84
[2025-02-14 04:47] VITALS: BP 115/62; PULSE 84; RESP 20; TEMP 36.5; O2SAT 98
[2025-02-14 05:12] LABS: Basophils Absolute Auto 0.1 K/mm3 (0.0-0.1); Basophils Percent Auto 0.9 % (0.2-1.2); Eosinophils Absolute Auto 0.3 K/mm3 (0-0.3); Eosinophils Percent Auto 4.1 % (0-4.4); Hemoglobin 14.5 g/dL (14.0-18.0); Immature Granulocyte Absolute 0.02 K/mm3 (0.00-0.031); Immature Granulocyte Percent A 0.3 % (0-0.5); Lymphocytes Percent Auto 27.6 % (18.3-44.2); Mean Corpuscular HGB Conc 33.7 g/dl (32-36); Mean Corpuscular Hemoglobin 31.6 pg (26-34); Mean Corpuscular Volume 93.7 fl (80-100); Mean Platelet Volume 8.6 fl (7.4-10.4); Monocytes Absolute Auto 0.7 K/mm3 (0.1-0.6); Monocytes Percent Auto 9.6 % (2.6-8.5); Neutrophils Absolute Auto 4.4 K/mm3 (1.3-6.7); Neutrophils Percent Auto 57.5 % (45.5-73.1); Platelet Count Result 290 k/mm3 (150-375); Red Blood Count 4.59 M/mm3 (4.6-6.20); Red Cell Distribution Width 12.1 % (11.5-14.5); White Blood Count 7.6 K/mm3 (4.5-10.0)
[2025-02-14 05:29] LABS: Alanine Aminotransferase 27 U/L (6-50); Albumin Level 4.4 g/dL (3.5-5.1); Alkaline Phosphatase 60 U/L (38-126); Anion Gap 9 mmol/L (4-12); Aspartate Amino Transferase 26 U/L (17-59); Bilirubin,Total 1.3 mg/dL (0.2-1.3); Blood Urea Nitrogen 15 mg/dL (9-20); Calcium 9.2 mg/dL (8.4-10.2); Carbon Dioxide 25 mmol/L (22-30); Chloride 102 mmol/L (98-107); Estimated CRCL calculation 64 ml/min; Estimated Glomerular Filt Rate > 60; Glucose 96 mg/dL (65-110); Magnesium 2.2 mg/dL (1.6-2.3); Potassium 4.1 mmol/L (3.4-5.0); Sodium 136 mmol/L (137-145)
--- NOTE | 2025-02-14 07:43 | PM.IMPN ---
Progress Note: A&P Assessment and Plan (1) Altered mental status: Code(s): R41.82 - Altered mental status, unspecified Status: Acute Assessment and Plan: Etiology unknown. No infectious symptoms or signs present objectively or subjectively. Suspect TIA as pt has strong hx of previous TIA/CVA. Currently at baseline without deficit. NIH 0. - A1C 5.2%. TSH 6.96, Free T4 1.03, Total T3 1.31. Trop negative. - Lipid panel obtained, increased rosuvastatin dose. - Head/neck CTA without acute infarct but 20 % stenosis of right and 10 % stenosis of the left carotid arteries. - MRI showed no acute infarct. - Echo showed LVEF 60-65% with grade I diastolic dysfunction - Start high-intensity statin - Continue Plavix 75 mg daily and 81 mg aspirin daily - Initiate stroke protocol, NIH Stroke Scale, neuro's q.4 hours - Monitor CBC, CMP, magnesium, troponin, and lipid profile - Monitor blood pressure, allow for permissive hypertension. - EKG without any ischemic changes. Telemetry monitoring - Monitor blood glucose - PT/OT eval and treat - Neurology consulted, appreciate assistance and recommendations Continue dual antiplatelet therapy, increase dose of rosuvastatin. Obtain EEG. (2) Dizziness: Code(s): R42 - Dizziness and giddiness Status: Inactive Assessment and Plan: Acute on chronic, present for a couple of months Fall precautions. See all interventions for #1. (3) TIA (transient ischemic attack): Code(s): G45.9 - Transient cerebral ischemic attack, unspecified Status: Chronic Assessment and Plan: Pt with multiple prior TIA/CVA. Continue ASA/Plavix/Statin therapy See plan #1 (4) Asthma, moderate persistent: Code(s): J45.40 - Moderate persistent asthma, uncomplicated Status: Chronic Assessment and Plan: Continue prn albuterol (5) GERD (gastroesophageal reflux disease): Code(s): K21.9 - Gastro-esophageal reflux disease without esophagitis Status: Chronic Assessment and Plan: Continue PPI Therapy (6) Mixed hyperlipidemia: Code(s): E78.2 - Mixed hyperlipidemia Status: Chronic Assessment and Plan: Continue Statin therapy, dose increased to 30 mg PO rosuvastatin. Continue Vascepa (7) Bilateral carotid artery stenosis: Code(s): I65.23 - Occlusion and stenosis of bilateral carotid arteries Status: Chronic Assessment and Plan: Known stenosis present. CTA performed in ER shows 20% occlusion on the right and 10% occlusion on the left. Continue ASA/Plavix. (8) HTN (hypertension): Code(s): I10 - Essential (primary) hypertension Status: Chronic Assessment and Plan: Chronic Continue current medications of Losartan 100 mg daily Blood pressures reviewed, remain stable Subjective Date/time seen: 02/14/25 07:43 Interval history: 69-year-old male patient with history of multiple CVAs noted in 2006, 2007 and 2017 without any residual weakness or affect currently on Plavix and statin therapy, BPH, hypothyroidism, CAD, known carotid stenosis, asthma, hyperlipidemia, HTN, GERD, diastolic dysfunction without heart failure and diverticulosis came to the ER w/ complaints of acute confusion. Review of Systems Review of Systems: All systems reviewed & are unremarkable except as noted in HPI and below Exam Narrative: AF General: well nourished, well-developed male in no acute respiratory distress who is nontoxic appearing, lying semi recumbent in bed. HEENT: Normocephalic. Atraumatic. Pupils equal round reactive to light. Extraocular movement intact. Sclera clear and anicteric. Nares patent. No oral lesions. Moist mucous membranes. Tongue is midline. Palate supa symmetrically. No facial asymmetry. Neck: Neck was supple. No dominant adenopathy, thyromegaly or masses. 2+ carotid upstrokes without bruits. Chest: Lungs are clear to auscultation bilaterlly. No wheezes or crackles. CV: Heart was regular rate and rhythm. S1/S2. No murmurs, gallops, or rubs. Abd: Abdomen was soft. Nontender. Nondistended. Postive bowel sounds. No organomegaly or masses. Ext: No clubbing, cyanosis, or edema. 2+ DP pulses bilaterally. Neuro: Patient is alert and oriented x4. Strenth is 5/5 in both upper and lower extremities. Cranial nerves 2-12 are intact. Speech is clear. Psych: Normal nood and affect. Patient is pleasant and cooperative. Skin: Warm and dry. No rashes noted. Objective Data Vital Signs Vital Signs: Vital Signs - 24 hr 02/13/25 08:00 02/13/25 09:00 02/13/25 09:52 Temperature Pulse Rate 75 Respiratory Rate Blood Pressure Pulse Oximetry 96 Oxygen Delivery Room Air Room Air 02/13/25 12:00 02/13/25 13:57 02/13/25 16:00 Temperature 97.2 F L Pulse Rate 73 99 86 Respiratory Rate 16 Blood Pressure 105/57 L Pulse Oximetry 94 Oxygen Delivery 02/13/25 20:00 02/13/25 20:00 02/13/25 20:18 Temperature 97.8 F Pulse Rate 88 74 Respiratory Rate 20 Blood Pressure 127/71 Pulse Oximetry 100 Oxygen Delivery Room Air 02/14/25 00:00 02/14/25 04:00 02/14/25 04:47 Temperature 97.7 F Pulse Rate 77 84 84 Respiratory Rate 20 Blood Pressure 115/62 Pulse Oximetry 98 Oxygen Delivery Intake/Output Intake/Output: Intake & Output 02/11/25 02/12/25 02/13/25 02/14/25 23:59 23:59 23:59 23:59 Intake Total 1270 290 Balance 1270 290 Meds/Results Medications: Active Medications Generic Name Dose Route Start Last Admin Trade Name Freq PRN Reason Stop Dose Admin Acetaminophen 650 mg 02/12/25 12:25 02/13/25 19:25 Acetaminophen 325 Mg Tablet PO 650 mg Q4H PRN Administration Mild Pain (1-3) or Fever Hydrocodone Bitart/Acetaminophen 1 tab 02/12/25 12:25 Hydrocodone/Acetaminophen (*Crx) 5-325 Mg Tablet PO Q4H PRN Pain Rated 4-6 Albuterol 2 puff 02/12/25 16:00 Albuterol Sulfate (*Sp) Aerosol 1 Puff INHALATION Q4H PRN Shortness Of Breath Or Wheezing Aspirin 81 mg 02/12/25 13:55 02/13/25 08:58 Aspirin 81 Mg Enteric Tablet PO 81 mg DAILY KERRI Administration Clopidogrel Bisulfate 75 mg 02/12/25 13:55 02/13/25 08:58 Clopidogrel Bisulfate 75 Mg Tablet PO 75 mg DAILY KERRI Administration Enoxaparin Sodium 40 mg 02/13/25 09:00 02/13/25 08:58 Enoxaparin 40 Mg/0.4 Ml Syringe SUB-Q 40 mg DAILY KERRI Administration Fish Oil 2 gm 02/12/25 17:00 02/13/25 17:15 Girard 3 Polyunsat Fatty Acids 1 Gm Cap PO 2 gm BID KERRI Administration Fluticasone Propionate 2 spray 02/13/25 09:00 02/13/25 08:58 Fluticasone Propionate 0.05% Na Spr 16 Gm Btl (*Bkc) NASAL 2 spray DAILY KERRI Administration Lactobacillus Acidophilus 1 tablet 02/13/25 09:00 02/13/25 08:58 Acidophilus/Bulgaricus Chewable Tablet BY MOUTH 1 tablet DAILY KERRI Administration Losartan Potassium 100 mg 02/12/25 13:55 02/13/25 08:58 Losartan Potassium 100 Mg Tablet PO 100 mg DAILY KERRI Administration Ondansetron HCl 4 mg 02/12/25 12:25 Ondansetron Inj 4 Mg/2 Ml Vial IV PUSH Q4H PRN Nausea Pantoprazole Sodium 40 mg 02/12/25 14:00 02/13/25 08:58 Pantoprazole 40 Mg Tablet PO 40 mg QAM KERRI Administration Perflutren Lipid Microsphere 0 ml 02/12/25 13:56 Perflutren Lipid Microspheres 1.5 Ml Vial Diluted To 10 Ml Total Volume IV PUSH 02/15/25 13:56 ONCE PRN adequate visualization Protocol Rosuvastatin Calcium 30 mg 02/14/25 09:00 Rosuvastatin 10 Mg Tablet PO DAILY [facility] Radiology Results: ITS Impressions Chest X-Ray 02/12/25 10:11 IMPRESSION: No acute cardiopulmonary pathology. Head/Neck CTA 02/12/25 10:55 IMPRESSION: 1. Normal CTA head. 2. CTA of the neck.. Percent stenosis per NASCET criteria is 20% on the right and 10% on the left. Brain MRI 02/12/25 16:21 IMPRESSION: No acute ischemic infarct. Pansinus mucoperiosteal disease. Labs Labs: Laboratory Results - last 24 hr 02/13/25 02/14/25 04:24 05:02 WBC 7.6 RBC 4.59 L Hgb 14.5 Hct 43.0 MCV 93.7 MCH 31.6 MCHC 33.7 RDW 12.1 Plt Count 290 MPV 8.6 Immature Gran % (Auto) 0.3 Neut % (Auto) 57.5 Lymph % (Auto) 27.6 [place] % (Auto) 9.6 H Eos % (Auto) 4.1 Baso % (Auto) 0.9 Lymph # (Auto) 2.10 [place] # (Auto) 0.7 H Eos # (Auto) 0.3 Baso # (Auto) 0.1 Abs Immat Gran (auto) 0.02 Absolute Neuts (auto) 4.4 Absolute Nucleated RBC 0.000 Nucleated RBC % 0.0 Sodium 136 L Potassium 4.1 Chloride 102 Carbon Dioxide 25 Anion Gap 9 BUN 15 Creatinine 0.92 Estim Creat Clear Calc 64 Estimated GFR > 60 Glucose 96 Calcium 9.2 Magnesium 2.2 Total Bilirubin 1.3 AST 26 ALT 27 Alkaline Phosphatase 60 Total Protein 7.0 Albumin 4.4 Vitamin B12 253.0 Folate 4.7 Quality VTE Prophylaxis VTE prophylaxis: pharmacologic ordered
[2025-02-14 08:00] VITALS: RESP 20; O2SAT 98
[2025-02-14 08:01] VITALS: PULSE 102
[2025-02-14] MEDS: OMEGA 3 POLYUNSAT FATTY ACIDS 1 GM CAP 2 GM PO (08:08)
[2025-02-14] MEDS: PANTOPRAZOLE 40 MG TABLET PO (08:08)
[2025-02-14] MEDS: ASPIRIN 81 MG ENTERIC TABLET PO (08:08)
[2025-02-14] MEDS: ENOXAPARIN 40 MG/0.4 ML SYRINGE SUB-Q (08:08)
[2025-02-14] MEDS: ROSUVASTATIN 10 MG TABLET 30 MG PO (08:08)
[2025-02-14] MEDS: ACIDOPHILUS/BULGARICUS CHEWABLE TABLET 1 TABLET BY MOUTH (08:09)
[2025-02-14] MEDS: CLOPIDOGREL BISULFATE 75 MG TABLET PO (08:09)
[2025-02-14] MEDS: FLUTICASONE PROPIONATE 0.05% NA SPR 16 GM BTL (*BKC) 2 SPRAY NASAL (08:09)
[2025-02-14] MEDS: LOSARTAN POTASSIUM 100 MG TABLET PO (08:09)
--- NOTE | 2025-02-14 08:24 | PCNEURO ---
Cancelled out EEG; was already done yesterday afternoon.
--- NOTE | 2025-02-14 08:50 | WPDNEUROLOGY ---
Neurology EEG Report General Information Date of Study: 02/13/25 TEST EEG DIAGNOSIS Altered mental status CONDITION OF RECORDING awake drowsy and asleep EEG NUMBER 25-51 CLINICAL HISTORY patient reported he is here in the hospital for a TIA. Patient had an episode day before where he could not remember anything for about 20minutes. EEG DESCRIPTION Basic resting occipital frequency consists of large amount of well-organized low-voltage to medium voltage 9 to 11 hertz per 2nd alpha admixed with low-voltage 15 to 21 hertz per 2nd beta. Posterior alpha rhythm is symmetrically block with eyes open. [place] G beta activity seen admixed with theta and alpha during the early period of sleep evolving into bilateral symmetrical sleep spindles. Photic stimulation not done hyperventilation not done. Non paroxysmal. Nonfocal. Nonlateralizing. IMPRESSION Normal Record. Clinical correlation recommended as the normal record does not rule out the possibility of the seizure.
[2025-02-14 12:04] VITALS: PULSE 82
--- NOTE | 2025-02-14 12:58 | P.DS_ITS ---
DS: Admitting Diagnosis Discharge Date 02/14/2025 Admitting Diagnosis AMS Dizziness TIA Asthma GERD Mixed HLD Bilateral carotid artery stenosis HTN DS: Discharge Diagnosis Discharge Diagnosis (1) Altered mental status: Code(s): R41.82 - Altered mental status, unspecified Status: Acute (2) Dizziness: Code(s): R42 - Dizziness and giddiness Status: Inactive (3) TIA (transient ischemic attack): Code(s): G45.9 - Transient cerebral ischemic attack, unspecified Status: Chronic (4) Asthma, moderate persistent: Code(s): J45.40 - Moderate persistent asthma, uncomplicated Status: Chronic (5) GERD (gastroesophageal reflux disease): Code(s): K21.9 - Gastro-esophageal reflux disease without esophagitis Status: Chronic (6) Mixed hyperlipidemia: Code(s): E78.2 - Mixed hyperlipidemia Status: Chronic (7) Bilateral carotid artery stenosis: Code(s): I65.23 - Occlusion and stenosis of bilateral carotid arteries Status: Chronic (8) HTN (hypertension): Code(s): I10 - Essential (primary) hypertension Status: Chronic DS: Summary Hospital Course Reason for hospitalization: AMS Dizziness TIA Asthma GERD Mixed HLD Bilateral carotid artery stenosis HTN Hospital Course: 69-year-old male patient with history of multiple CVAs noted in 2006, 2007 and 2018 without any residual weakness or affect currently on Plavix and statin therapy, BPH, hypothyroidism, CAD, known carotid stenosis, asthma, hyperlipidemia, HTN, GERD, diastolic dysfunction without heart failure and diverticulosis came to the hospital with complaints of acute confusion. Etiology unknown. No infectious symptoms or signs present objectively or subjectively. Likely a TIA as pt has strong hx of previous TIA/CVA. Currently at baseline without deficit on admission with NIH 0. Neurology consulted. Patient remained on dual antiplatelet therapy. A1C 5.2%. TSH 6.96, Free T4 1.03, Total T3 1.31. Trop negative. Lipid panel obtained, increased rosuvastatin dose. Head/neck CTA without acute infarct but 20 % stenosis of right and 10 % stenosis of the left carotid arteries. MRI showed no acute infarct. Echo showed LVEF 60-65% with grade I diastolic dysfunction with negative bubble. EEG obtained and unremarkable. Prior to discharge discussed patient with Dr. Ya who agreed that patient is ready for discharge. Patient has no complaints at time of discharge denying chest pain, palpitations, shortness of breath, nausea/vomiting, abdominal pain, dizziness/lightheadedness, weakness/tingling/numbness and gait instability. States he feels back to baseline. Patient discharged home with family in a stable condition. He is to follow up with his PCP in 1 week and neurology as scheduled. Status at Discharge Functional status at discharge: independent ambulation Time Spent with Patient Time attestation: Total time spent providing and/or coordinating discharge services: Time spent: Greater than 30 minutes Exam Narrative: AF HR 82 RR 20 SPO2 98 BP 115/62 General: male in no acute respiratory distress who is nontoxic appearing, sitting up in chair HEENT: Normocephalic. Atraumatic. Pupils equal round reactive to light. Extraocular movement intact. Sclera clear and anicteric. No facial asymmetry. Chest: Lungs are clear to auscultation bilaterally. No wheezes or crackles. CV: Heart was regular rate and rhythm. Abd: Abdomen was soft. Nontender. Nondistended. Positive bowel sounds. Ext: No clubbing, cyanosis, or edema. DP pulses bilaterally. Neuro: Patient is alert and oriented x4. Strength is 5/5 in both upper and lower extremities. Cranial nerves 2-12 are intact. Speech is clear. DS: Data Data Completed and Pending Completed studies during hospitalization: Brain MRI Head/neck CTA Chest XR Labs on day of discharge: Labs from last 24 hours 02/14/25 02/13/25 05:02 04:24 WBC 7.6 RBC 4.59 L Hgb 14.5 Hct 43.0 MCV 93.7 MCH 31.6 MCHC 33.7 RDW 12.1 Plt Count 290 MPV 8.6 Immature Gran % (Auto) 0.3 Neut % (Auto) 57.5 Lymph % (Auto) 27.6 [place] % (Auto) 9.6 H Eos % (Auto) 4.1 Baso % (Auto) 0.9 Lymph # (Auto) 2.10 [place] # (Auto) 0.7 H Eos # (Auto) 0.3 Baso # (Auto) 0.1 Abs Immat Gran (auto) 0.02 Absolute Neuts (auto) 4.4 Absolute Nucleated RBC 0.000 Nucleated RBC % 0.0 Sodium 136 L Potassium 4.1 Chloride 102 Carbon Dioxide 25 Anion Gap 9 BUN 15 Creatinine 0.92 Estim Creat Clear Calc 64 Estimated GFR > 60 Glucose 96 Calcium 9.2 Magnesium 2.2 Total Bilirubin 1.3 AST 26 ALT 27 Alkaline Phosphatase 60 Total Protein 7.0 Albumin 4.4 Vitamin B12 253.0 Folate 4.7 Discharge Plan Discharge Attending physician on discharge: John Hart Consulting providers: Fox Ya Discharging Clinician: Ryanne Bryant Anticipated Discharge Date/Time: 02/14/25 12:53 Patient Disposition: Home Activity: as tolerated Diet: as tolerated and heart healthy Discharge Instructions: Discharge disposition: Patient admitted to the hospital for altered mental status Evaluated by neurology Imaging unremarkable for acute infarct EEG unremarkable for seizure Take all medications as prescribed even if feeling better Continue aspirin and plavix as prescribed Rosuvastatin dose increased to 30 mg daily Strict bleeding precautions since you are on Plavix and aspirin including shaving with an electric razor, holding pressure for greater than 20 minutes for injury, protection of had with any falls, etc. Eat well balanced meals and stay hydrated Follow-up with neurology in 6-8 weeks Monitor blood pressures Take caution while standing, rising, or moving Change positions slowly taking a break between each position change If you standing feel dizzy sit back down and take a break Encouraged to continue with yearly vaccinations Return to the emergency department if he developed sudden shortness of breath, chest pain, nausea, vomiting, upset stomach or intractable diarrhea Return to the emergency department if you develop fever greater than 101.5 Follow-up with the primary care physician within 1-2 weeks Thank you for [facility] for your healthcare needs Patient Instructions: Aspirin (By mouth), Clopidogrel (By mouth), Rosuvastatin (By mouth), Transient Ischemic Attack (DC), Blood Thinners (DC) Patient Language: Barbadian Stand Alone Forms: General Discharge Information Follow-up/Referrals: Fox Ya MD [Physician] - Call for Appointment Karel Ramirez MD [Primary Care Provider] - 1 Week Discharge Medications: New rosuvastatin [Crestor] 10 mg Tablet 30 mg PO DAILY Qty: 90 0RF Continued Align (B.infantis) 4 mg capsule 4 mg PO DAILY losartan 100 mg tablet 100 mg PO DAILY Qty: 90 0RF aspirin 81 mg Tablet,Delayed Release (Dr/Ec) 81 mg PO DAILY albuterol 90 mcg/actuation Aerosol See Rx Instructions .ROUTE .COMPLEX Rx Instructions: albuterol 2 puffs prn shortness of breath QID fluticasone propionate [Aller-Romero] 50 mcg/actuation spray,suspension 2 spray intranasal DAILY Rx Instructions: administer into each nostril icosapent ethyl [Vascepa] 1 gram capsule 2 g PO BID Qty: 400 2RF pantoprazole 20 mg tablet,delayed release (DR/EC) See Rx Instructions .ROUTE .COMPLEX Qty: 200 1RF Dose Instruction: TAKE 2 TABLETS BY MOUTH IN THE MORNING Rx Instructions: TAKE 2 TABLETS BY MOUTH IN THE MORNING clopidogrel [Plavix] 75 mg tablet 75 mg PO DAILY Qty: 100 2RF Changed rosuvastatin 20 mg tablet 30 mg PO DAILY Qty: 100 2RF Date of admission: 02/12/25 12:40 Primary Care Provider: Karel Ramirez Admitting Provider: Natasha Greer Attending physician on admission: Ryanne Bryant Condition: Stable Hospitalist MIPS Heart Failure (Exclusion) Patient has history of Heart Transplant or Left Ventricular Assistive Device?: No IF YES, STOP HERE Heart Failure (Qualifier) Patient has current or prior documentation of LVEF less than or equal to 40%, or mod/servere depressed LVSF?: No IF NO, STOP HERE
[2025-02-16 20:24] LABS: Methylmalonic Acid 98 nmol/L (69-390)
== END 2025-02-14 13:40 | disposition home or self-care (01) ==
LOC: ANHED 10:30 → ANH2MED 02-13 06:47
PROVIDERS: Emergency Medicine; Nurse Practitioner Adult Health; Psychiatry & Neurology Neurology; Admitting Provider Internal Medicine; Emergency Provider Emergency Medicine; PCP Family Medicine Adolescent Medicine; Visit Provider Student in an Organized Health Care Education/Training Program
DX: R41.82 Altered mental status, unspecified (principal); R42 Dizziness and giddiness; I65.23 Occlusion and stenosis of bilateral carotid arteries; I25.10 Atherosclerotic heart disease of native coronary artery without angina pectoris; I11.9 Hypertensive heart disease without heart failure; E78.2 Mixed hyperlipidemia; J45.40 Moderate persistent asthma, uncomplicated; K21.9 Gastro-esophageal reflux disease without esophagitis; E03.9 Hypothyroidism, unspecified; N40.1 Benign prostatic hyperplasia with lower urinary tract symptoms; K57.30 Diverticulosis of large intestine without perforation or abscess without bleeding; Z79.02 Long term (current) use of antithrombotics/antiplatelets; Z79.51 Long term (current) use of inhaled steroids; Z79.82 Long term (current) use of aspirin; Z79.899 Other long term (current) drug therapy; Z86.0101 Personal history of adenomatous and serrated colon polyps; Z86.73 Personal history of transient ischemic attack (TIA), and cerebral infarction without residual deficits; Z87.891 Personal history of nicotine dependence
CPT/HCPCS: 36415; 70496; 70498; 70553; 71046; 80053; 80061; 81001; 82607; 82746; 83036; 83735; 83921; 84439; 84443; 84480; 84484; 85025; 85610; 85730; 93005; 93306; 95816; 96372; 96375; 99285; A9270; A9579; G0378; J1650; Q9967

== ENCOUNTER 2025-04-12 00:07 | Day surgery (SDC) | payer MEDICARE, SELFPAY ==
[2025-03-30 14:48] VITALS: BMI 25.1
--- NOTE | 2025-04-03 15:25 | PC.NURSE ---
Spoke with _patient_ regarding medication _Plavix_. _Patient__verbalizes understanding that the last dose is to be taken on 04/04/25 and the Endoscopist will instruct them when to restart after the procedure.
--- OUTSIDE RECORDS SUMMARY | 2025-04-12 00:10 | XMS_ITS | Clinical Summary ---
Author Organization [facility] Address [address] [address] Phone Care Team Providers Care Cheese Cooker Name Role Phone Karel Ramirez MD Primary [...] Comments Blood Pressure 160/86 11/22/2020 8:18 AM DO ALL OPERATOR Pulse 71 11/22/2020 8:18 AM DO ALL OPERATOR Temperature 36.7 C (98 F) 11/22/2020 8:18 AM DO ALL OPERATOR Respiratory Rate 22 11/22/2020 8:18 AM DO ALL OPERATOR Oxygen Saturation 98% 11/22/2020 8:18 AM DO ALL OPERATOR Inhaled Oxygen Concentration - - Weight 77.1 kg (170 lb) 11/22/2020 8:18 AM DO ALL OPERATOR Height 172.7 cm (5' 8) 11/22/2020 8:18 AM DO ALL OPERATOR Body Mass Index 25.85 11/22/2020 8:18 AM DO ALL OPERATOR Plan of Treatment Health Maintenance Due Date Last Done Comments Hepatitis C Virus (HCV) Screening 1955 TdaP Immunization 1955 Cologuard 1999 Immunochemical Fecal Occult Blood 1999 Pneumococcal Immunization (5 0+ years) (2 of 2 - PPSV23) 09/28/2020 09/28/2019 SARS-COV-2 Immunization (4 - season) 2024 09/19/2021, 12/27/2020, 12/06/2020 Colonoscopy 04/25/2025 04/25/2020 Colorectal Cancer Screening 04/25/2025 Influenza Immunization (Se[place] on Ended) 2025 09/28/2019, 07/21/2018, 10/03/2015 Respiratory Syncytial Virus (RSV) Immunization (Adult) (1 - 1-dose 75+ series) 2029 Pneumococcal Immunization Combined Discontinued 09/28/2019 Zoster Immunization Completed 12/12/2019, 09/28/2019 Hepatitis B Immunization Aged Out No longer eligible based on patient's age to complete this topic Human Papillomavirus (HPV) Immunization Aged Out No longer eligible based [...] Most Recently Relevant to Health Maintenance Insurance on file Care Teams Cheese Cooker Relationship Specialty Start Date End Date Karel Ramirez MD PCP - General Family Medicine 12/16/19
--- OUTSIDE RECORDS SUMMARY | 2025-04-12 00:10 | XMS_ITS | Clinical Summary ---
Author Organization [facility] Address [address] [place] [id number] Care Team Providers Care Communications Representative Name Role Phone Unavailable Primary Care Provider [...]
--- NOTE | 2025-04-12 07:10 | P.PNAN_ITS ---
Anes - Initial Pre Proc Eval Procedure: Operation Date: 04/12/25 10:00 Proposed Procedures p Colonoscopy - Andreas Gonzalez MD Date/Time: 04/12/25 07:10 Surgeon: Andreas Gonzalez MD Pre Op Diagnosis: Personal history of colon polyps, unspecified Patient Data Age: 69 Gender: M Height: 1.73 m Weight: 75 kg Allergies Allergy/AdvReac Type Severity Reaction Status Date / Time No Known Allergies Allergy Verified 04/03/25 16:10 Home Medications ?Medication ?Instructions ?Recorded ?Confirmed ?Type aspirin 81 mg tablet,delayed 81 mg PO DAILY 04/18/20 04/12/25 History release albuterol 90 mcg/actuation aerosol See Rx Instructions .Route 08/11/20 03/30/25 History inhaler .COMPLEX SHORTNESS OF BREATH icosapent ethyl 1 gram capsule 2 g (2 x 1 gram) PO BID #400 caps 09/26/24 04/12/25 Rx (Vascepa) Bifidobacterium infantis 4 mg 4 mg PO DAILY 02/06/25 04/12/25 History capsule (Align (B.infantis)) clopidogrel 75 mg tablet (Plavix) 75 mg PO DAILY #100 tabs 02/10/25 04/12/25 Rx fluticasone propionate 50 2 spray intranasal DAILY 02/12/25 03/30/25 History mcg/actuation nasal spray,suspension (Aller-Romero) losartan 100 mg tablet See Rx Instructions .Route 03/30/25 04/12/25 Rx .COMPLEX #90 tabs pantoprazole 40 mg tablet,delayed 40 mg PO QAM 03/30/25 04/12/25 History release rosuvastatin 10 mg tablet (Crestor) 10 mg PO DAILY #90 tabs 03/30/25 04/12/25 Rx rosuvastatin 20 mg tablet 20 mg PO DAILY #90 tabs 03/30/25 04/12/25 Rx Patient hx anesthesia problems: none Family hx anesthesia problems: none Results Review: All pre-operative results and documents have been reviewed as part of the pre- operative evaluation. [facility] Past Medical History Medical History TIA (transient ischemic attack) Altered mental status Benign prostatic hyperplasia with lower urinary tract symptoms Hypothyroid Coronary artery disease without angina pectoris CT scan 02/24 Bilateral carotid artery stenosis 09/2018 Asthma, moderate persistent Mixed hyperlipidemia Diverticula, colon Adenomatous colon polyp Diastolic dysfunction without heart failure Noted on echocardiogram May 2018 demonstrating grade 1 diastolic dysfunction EF 60-65% with small atheroma HTN (hypertension) GERD (gastroesophageal reflux disease) CVA (cerebral vascular accident) Right lacunar infarct 2006 Surgical History Surgical History History of nasal surgery H/O colonoscopy Screening colonoscopy 04/15/2020 with polypectomy x2 of ascending colon with recommended repeat colonoscopy in 5 years Family History Family History Father , in his late 80s Diabetes mellitus Hypertension Asthma Dementia Cerebrovascular accident Sibling Patient's sister is in good health Patient's brother is in good health Mother , mid July 2020 at age 88 Hyperlipidemia Cerebrovascular accident Other Carcinoma of colon Malignant neoplasm of prostate Other Colon polyp Social History Social History Social History: Primary care physician: Dr. Karel Alvarado Code status: Full code Smoking packs per day: 0.75 Smoking cigarettes per day: 15.0 Years smoked: 5 Smoking pack-years: 3.75 Smoking status: Former smoker Tobacco type: cigarettes Smoking end date: 10/12/80 Alcohol intake: current Drinks per week: 14 Alcohol use details: He drinks a couple of mixed drinks daily. Substance use: current Substance use type: does not use Do You Feel Safe in your Home?: Yes Lack of Transportation: No Lack of Food: Never True Current Housing: I Have Housing Concerned About Future Housing: No Difficulty Paying Gas/Electric Bills: No Difficulty Paying for Meds: No Currently Unemployed: No Education: Associate Degree Difficulty w/ Childcare or Family Care: No Living arrangements: with family Additional living arrangements comments: He lives with his of 48 years. They have 4 adult children under relatively healthy. They have 9 grand children. Occupation/Education: retired Additional occupation/education comments: He is retired from a [email or web address]. Gender identity (if verbalized by the patient): Male Sexual Orientation (if Verbalized by the Patient): Straight or Heterosexual Spiritual care concerns: No Agree to blood products: Yes Anes - Eval Final PreProcedure Day of Procedure 04/12/25 07:10 Patient weight: overweight Heart: regular rate and rhythm Lungs: clear to auscultation Airway: Mallampati scale class II Neurological: alert and oriented Last oral intake: >/= 8 hours ASA classification: III Emergent: no Anesthetic plan: proceed Anesthesia type and monitoring: general GIVS and standard monitoring Results Review: All pre-operative results and documents have been reviewed as part of the pre- operative evaluation. Informed Consent: The patient's anesthetic plan and its attendant risks and benefits were discussed with the patient/family/POA. Questions were solicited and answers provided to the satisfaction of the patient/family/POA.
[2025-04-12 08:51] VITALS: BP 135/76; PULSE 80; RESP 18; TEMP 36.6; O2SAT 99
[2025-04-12] MEDS: LACTATED RINGERS 1,000 ML 150 ML IV CONT (08:57)
--- NOTE | 2025-04-12 09:03 | P.HP_ITS ---
H&P: HPI History of Present Illness Date/Time: 04/12/25 09:03 Chief Complaint: History of colon polyps Narrative: The patient has a history of colonic polyps, the last colonoscopy was 5 years ago. Review of Systems Review of Systems: All systems reviewed & are unremarkable except as noted in HPI and below [facility] Past Medical History Medical History TIA (transient ischemic attack) Altered mental status Benign prostatic hyperplasia with lower urinary tract symptoms Hypothyroid Coronary artery disease without angina pectoris CT scan 02/24 Bilateral carotid artery stenosis 09/2018 Asthma, moderate persistent Mixed hyperlipidemia Diverticula, colon Adenomatous colon polyp Diastolic dysfunction without heart failure Noted on echocardiogram May 2018 demonstrating grade 1 diastolic dysfunction EF 60-65% with small atheroma HTN (hypertension) GERD (gastroesophageal reflux disease) CVA (cerebral vascular accident) Right lacunar infarct 2006 Surgical History Surgical History History of nasal surgery H/O colonoscopy Screening colonoscopy 04/15/2020 with polypectomy x2 of ascending colon with recommended repeat colonoscopy in 5 years Family History Family History Father , in his late 80s Diabetes mellitus Hypertension Asthma Dementia Cerebrovascular accident Sibling Patient's sister is in good health Patient's brother is in good health Mother , mid July 2020 at age 88 Hyperlipidemia Cerebrovascular accident Other Carcinoma of colon Malignant neoplasm of prostate Other Colon polyp Social History Social History Social History: Primary care physician: Dr. Karel Alvarado Code status: Full code Smoking packs per day: 0.75 Smoking cigarettes per day: 15.0 Years smoked: 5 Smoking pack-years: 3.75 Smoking status: Former smoker Tobacco type: cigarettes Smoking end date: 10/12/80 Alcohol intake: current Drinks per week: 14 Alcohol use details: He drinks a couple of mixed drinks daily. Substance use: current Substance use type: does not use Do You Feel Safe in your Home?: Yes Lack of Transportation: No Lack of Food: Never True Current Housing: I Have Housing Concerned About Future Housing: No Difficulty Paying Gas/Electric Bills: No Difficulty Paying for Meds: No Currently Unemployed: No Education: Associate Degree Difficulty w/ Childcare or Family Care: No Living arrangements: with family Additional living arrangements comments: He lives with his of 48 years. They have 4 adult children under relatively healthy. They have 9 grand children. Occupation/Education: retired Additional occupation/education comments: He is retired from a [employer]. Gender identity (if verbalized by the patient): Male Sexual Orientation (if Verbalized by the Patient): Straight or Heterosexual Spiritual care concerns: No Agree to blood products: Yes Meds Home Medications and Allergies Home Medications ?Medication ?Instructions ?Recorded ?Confirmed ?Type aspirin 81 mg tablet,delayed 81 mg PO DAILY 04/18/20 04/12/25 History release albuterol 90 mcg/actuation aerosol See Rx Instructions .Route 08/11/20 03/30/25 History inhaler .COMPLEX SHORTNESS OF BREATH icosapent ethyl 1 gram capsule 2 g (2 x 1 gram) PO BID #400 caps 09/26/24 04/12/25 Rx (Vascepa) Bifidobacterium infantis 4 mg 4 mg PO DAILY 02/06/25 04/12/25 History capsule (Align (B.infantis)) clopidogrel 75 mg tablet (Plavix) 75 mg PO DAILY #100 tabs 02/10/25 04/12/25 Rx fluticasone propionate 50 2 spray intranasal DAILY 02/12/25 03/30/25 History mcg/actuation nasal spray,suspension (Aller-Romero) losartan 100 mg tablet See Rx Instructions .Route 03/30/25 04/12/25 Rx .COMPLEX #90 tabs pantoprazole 40 mg tablet,delayed 40 mg PO QAM 03/30/25 04/12/25 History release rosuvastatin 10 mg tablet (Crestor) 10 mg PO DAILY #90 tabs 03/30/25 04/12/25 Rx rosuvastatin 20 mg tablet 20 mg PO DAILY #90 tabs 03/30/25 04/12/25 Rx Allergies Allergy/AdvReac Type Severity Reaction Status Date / Time No Known Allergies Allergy Verified 04/03/25 16:10 Vital Signs Vital Signs - 24 hr 04/12/25 08:51 Temperature 97.9 F Pulse Rate 80 Respiratory Rate 18 Blood Pressure 135/76 Pulse Oximetry 99 Oxygen Delivery Room Air Exam Const: General: cooperative and healthy appearing Resp: Effort & Inspection: normal respiratory effort and able to speak in complete sentences Auscultation: clear to auscultation bilaterally Cardio: Rate: regular rate Rhythm: regular rhythm GI: Inspection: normal to inspection GI Palp: No No hepatosplenomegaly present Auscultation: normal bowel sounds Rectal Exam: deferred Skin: General skin exam: normal color Psych: Appearance: grossly normal Mental Status: mental status grossly normal Assessment and Plan Assessment and plan (1) History of colonic polyps: Code(s): Z86.0100 - Personal history of colon polyps, unspecified Status: Acute Assessment and Plan: The patient is deemed a good candidate for the procedure. Consent signed. Will proceed.
--- NOTE | 2025-04-12 09:27 | S_PTH ---
PATIENT: Abraham Bruno LOC: [facility] U#:[id number] AGE/SX: 69/M ROOM: RE04/12/[address]: Andreas Gonzalez MD : 1955 BED: DIS: 04/12/2025 SPEC #: [id number] RECD: 04/12/25 13:17 STATUS: [place] REQ #: [id number] MICHELINE: 04/12/25 09:[address]: Andreas Gonzalez DEPT: [facility] Surgical RECD BY: Azul Hernadez ENTERED: 04/12/25 13:17 SP TYPE: Surgical OTHR DR: Karel Ramirez MD Tissues: A - Colon Polypectomy Procedures: Hematoxylin and Eosin Stain Gross and Microscopic Level 4
[2025-04-12 09:28] VITALS: BP 120/78; PULSE 68; RESP 18; O2SAT 99
[2025-04-12 09:38] VITALS: BP 124/66; PULSE 66; RESP 20; O2SAT 98
[2025-04-12 09:48] VITALS: BP 124/66; PULSE 68; RESP 16; O2SAT 98
== END 2025-04-12 10:22 | disposition home or self-care (01) ==
PROVIDERS: PCP Family Medicine Adolescent Medicine; Referring Provider Family Medicine; Visit Provider Internal Medicine Gastroenterology
PROC: 0DJD8ZZ Inspection of Lower Intestinal Tract, Via Natural or Artificial Opening Endoscopic (ICD-10-PCS; CPT 45378; principal; 2025-04-12 10:00)
DX: Z12.11 Encounter for screening for malignant neoplasm of colon (principal); D12.2 Benign neoplasm of ascending colon; K57.30 Diverticulosis of large intestine without perforation or abscess without bleeding; Z87.891 Personal history of nicotine dependence
CPT/HCPCS: 45385; 88305; J2704; J7120

== ENCOUNTER 2025-08-01 09:33 | Outpatient (CLI) | payer MEDICARE, SELFPAY ==
--- OUTSIDE RECORDS SUMMARY | 2025-08-01 11:03 | XMS_ITS | Clinical Summary ---
Author Organization [facility] Address [address] [place] [id number] Care Team Providers Care Topographical Drafter Name Role Phone Unavailable Primary Care Provider [...] Vaccines (1 of 2) 2004 COVID-19 Vaccine (1 - 2023-2 5 season) 2025 Influenza Adult (#1) 2025 RSV Immunization or 60+ Years (1 - 1-dose 75+ series) 2029 Hepatitis A Vaccines Aged Out No long er eligible based on patient's age to complete this topic Meningococcal B Vaccine Aged Out No l onger eligible based on patient's age to complete this topic Meningococcal Vaccine Aged Out No letty dalia eligible based on patient's age to complete this topic RSV Immunizations Under 20 Months Aged Out No longer eligible based on patient's age to complete this topic
--- OUTSIDE RECORDS SUMMARY | 2025-08-01 11:03 | XMS_ITS | Clinical Summary ---
Author Organization [facility] Address [address] [id number] Phone Care Team Providers Care Cable Cutter And Swager Name Role Phone Karel Ramirez MD Primary [...] Comments Blood Pressure 160/86 11/22/2020 8:18 AM [employer] Pulse 71 11/22/2020 8:18 AM [employer] Temperature 36.7 C (98 F) 11/22/2020 8:18 AM [employer] Respiratory Rate 22 11/22/2020 8:18 AM [employer] Oxygen Saturation 98% 11/22/2020 8:18 AM [employer] Inhaled Oxygen Concentration - - Weight 77.1 kg (170 lb) 11/22/2020 8:18 AM [employer] Height 172.7 cm (5' 8) 11/22/2020 8:18 AM [employer] Body Mass Index 25.85 11/22/2020 8:18 AM [employer] Plan of Treatment Health Maintenance Due Date Last Done Comments Hepatitis C Virus (HCV) Screening 1955 TdaP Immunization 1955 Cologuard 1999 Immunochemical Fecal Occult Blood 1999 Pneumococcal Immunization (5 0+ years) (2 of 2 - PCV20 or PCV21) 09/28/2020 09/28/2019 Medicare Initial AWV [id number] 10/12/2020 Colonoscopy 04/25/2025 04/25/2020 Colorectal Cancer Screening 04/25/2025 Influenza Immunization (#1) 06/12/202509/11, 07/21/2018, 10/03/2015 SARS-COV-2 Immunization ( season) 2025 09/19/2021, 12/27/2020, 12/06/2020 Respiratory Syncytial Virus (RSV) Immunization (Adult) (1 [...] Relevant to Health Maintenance Insurance MEDICARE C [employer] on file Care Teams [employer] Cutter And Swager Relationship Specialty Start Date End Date Karel Ramirez MD PCP - General Family Medicine 12/16/19
--- NOTE | 2025-08-11 13:45 | P.PCNHOL_ITS ---
Holter/Event Monitor Holter/Event Monitor Date of procedure: 08/01/25 Holter/Event Procedure: 3-7 Day Holter Monitor Indications: TIA Conclusion: 1. 7 days holter monitor on 08/01/25. 2. Predominant rhythm is sinus rhythm. HR range 66-222 bpm; average HR 86 pm. 3. There are rare premature supraventricular complexes, rare supraventricular couplets, and rare supraventricular triplets. There are 4 episodes of suprav entricular tachycardia with fastest at 222 bpm and longest lasting 14.2 seconds. 4. There are rare premature ventricular complexes and rare ventricular couplets. No ventricular tachycardia. 5. No significant pauses greater than 3 seconds. 6. Patient reports 3 episodes of symptoms of shortness of breath which demonstrate sinus rhythm, HR range 80-93 bpm.
== END 2025-08-01 09:34 | disposition home or self-care (01) ==
PROVIDERS: PCP Family Medicine Adolescent Medicine; Visit Provider Psychiatry & Neurology Neurology
DX: I49.1 Atrial premature depolarization (principal); I47.10 Supraventricular tachycardia, unspecified; I49.3 Ventricular premature depolarization; R06.02 Shortness of breath; G45.9 Transient cerebral ischemic attack, unspecified
CPT/HCPCS: 93242